=== PATIENT | female | born 1955 | race American Indian/Alaskan Native ===

== ENCOUNTER 2016-06-13 08:09 | Inpatient (IN) | payer MEDICAID, MEDICARE ==
[~2016-06-13 08:09] MED LIST: NACL 0.9% 500 ML 500 ML ONE
[2016-06-13] MEDS ORDERED: NACL 0.9% 1000 ML 1,000 ML IV ONE (08:35)
[2016-06-13 09:03] LABS: Basophils % (Auto) 0.9 % (0.0-1.8); Eosinophils % (Auto) 12.9 % (0.0-4.3); Hematocrit 29.9 % (30.3-42.9); Hemoglobin 9.3 gm/dl (10.1-14.3); Mean Corpuscular HGB Conc 31 % (30-34); Mean Corpuscular Hemoglobin 32 pg (28-32); Mean Corpuscular Volume 103 fl (79-97); Platelet Count 208 K/mm3 (140-440); Red Blood Count 2.91 M/mm3 (3.65-5.03); Red Cell Distribution Width 15.5 % (13.2-15.2); White Blood Count 10.3 K/mm3 (4.5-11.0)
[2016-06-13 09:11] LABS: Albumin 2.8 g/dL (3.9-5); BUN/Creatinine Ratio 4.46; Bilirubin,Total 0.4 mg/dL (0.1-1.2); Calcium 8.9 mg/dL (8.4-10.2); Chloride 94.4 mmol/L (98-107); Potassium 3.3 mmol/L (3.6-5.0); Total Protein 5.5 g/dL (6.3-8.2)
[2016-06-13 09:12] LABS: INR 1.24 (0.87-1.13)
[2016-06-13 09:13] LABS: Partial Thromboplastin Time 29.7 Sec. (24.2-36.6)
--- NOTE | 2016-06-13 11:42 | Emergency Department Report ---
ED General Adult HPI - General Chief complaint: Medical Clearance Stated complaint: BLEEDING /DIALYSIS Time Seen by Provider: 06/13/16 08:21 Source: patient, family, EMS Mode of arrival: Stretcher Limitations: No Limitations - Related Data Home Medications Medication Instructions Recorded Confirmed Last Taken Calcium Carbonate/Vitamin D3 1 each PO DAILY 06/13/16 06/13/16 Unknown [Os-Paul 500+D3 Caplet] Famotidine [Pepcid] 20 mg PO DAILY 06/13/16 06/13/16 Unknown Simvastatin [Zocor TAB] 20 mg PO QHS 06/13/16 06/13/16 Unknown Vit B Cmplx 3/FA/Vit C/Biotin 1 each PO DAILY 06/13/16 06/13/16 Unknown [Shaniqua-Rachael Rx Tablet] Allergies Allergy/AdvReac Type Severity Reaction Status Date / Time No Known Allergies Allergy Verified 06/13/16 08:20 ED Review of Systems ROS: Stated complaint: BLEEDING /DIALYSIS Other details as noted in HPI ED Past Medical Hx - Past Medical History Hx Hypertension: Yes Hx Renal Disease: Yes (Dialysis m-w-f) - Surgical History Additional Surgical History: AV graft right arm - Social History Smoking Status: Former Smoker Substance Use Type: None - Medications Home Medications: Home Medications Medication Instructions Recorded Confirmed Last Taken Type Calcium Carbonate/Vitamin D3 1 each PO DAILY 06/13/16 06/13/16 Unknown History [Os-Paul 500+D3 Caplet] Famotidine [Pepcid] 20 mg PO DAILY 06/13/16 06/13/16 Unknown History Simvastatin [Zocor TAB] 20 mg PO QHS 06/13/16 06/13/16 Unknown History Vit B Cmplx 3/FA/Vit C/Biotin 1 each PO DAILY 06/13/16 06/13/16 Unknown History [Shaniqua-Rachael Rx Tablet] ED Physical Exam - General Limitations: No Limitations ED Course Vital Signs 06/13/16 06/13/16 06/13/16 08:05 08:10 08:16 Temperature 97.4 F L Pulse Rate 119 H 108 H 120 H Respiratory 24 19 Rate Blood Pressure 103/77 103/77 103/77 O2 Sat by Pulse 100 99 Oximetry 06/13/16 06/13/16 06/13/16 08:20 08:30 08:41 Temperature Pulse Rate 106 H 99 H 99 H Respiratory 22 18 22 Rate Blood Pressure 94/58 94/58 O2 Sat by Pulse 100 100 100 Oximetry 06/13/16 06/13/16 06/13/16 08:51 09:00 09:11 Temperature Pulse Rate 97 H 97 H 87 Respiratory 25 H 27 H 22 Rate Blood Pressure 89/60 79/51 79/51 O2 Sat by Pulse 95 99 99 Oximetry 06/13/16 06/13/16 06/13/16 09:21 09:30 09:41 Temperature Pulse Rate 101 H 99 H 93 H Respiratory 26 H 20 24 Rate Blood Pressure 72/49 72/47 72/47 O2 Sat by Pulse 100 99 98 Oximetry 06/13/16 09:51 Temperature Pulse Rate 97 H Respiratory 18 Rate Blood Pressure 81/54 O2 Sat by Pulse 98 Oximetry ED Medical Decision Making - Lab Data Result diagrams: 06/13/16 08:36 06/13/16 08:36 Critical care attestation.: If time is entered above; I have spent that time in minutes in the direct care of this critically ill patient, excluding procedure time. ED Disposition Clinical Impression: Anemia, Bleeding at insertion site Disposition: OP ADMITTED IP TO THIS HOSP Is pt being admited?: Yes Does the pt Need Aspirin: No Condition: Fair Referrals: PRIMARY CARE, [Primary Care Provider] - 3-5 Days Time of Disposition: 11:41
--- NOTE | 2016-06-13 11:47 | Emergency Department Report ---
ED General Adult HPI - General Chief complaint: Medical Clearance Stated complaint: BLEEDING /DIALYSIS Time Seen by Provider: 06/13/16 08:21 Source: patient, family, EMS Mode of arrival: Stretcher Limitations: No Limitations - History of Present Illness -: Sudden Location: right, upper extremity Radiation: non-radiation Severity scale (0 -10): 3 Quality: stabbing Consistency: constant Improves with: cold therapy Worsens with: none Associated Symptoms: denies other symptoms. denies: confusion, chest pain, cough, diaphoresis, fever/chills, headaches, loss of appetite, malaise, nausea/ vomiting Treatments Prior to Arrival: none - Related Data Home Medications Medication Instructions Recorded Confirmed Last Taken Calcium Carbonate/Vitamin D3 1 each PO DAILY 06/13/16 06/13/16 Unknown [Os-Paul 500-Vit D3 600 Caplet] Famotidine [Pepcid] 20 mg PO DAILY 06/13/16 06/13/16 Unknown Simvastatin [Zocor TAB] 20 mg PO QHS 06/13/16 06/13/16 Unknown Vit B Cmplx 3/FA/Vit C/Biotin 1 each PO DAILY 06/13/16 06/13/16 Unknown [Shaniqua-Rachael Rx Tablet] Allergies Allergy/AdvReac Type Severity Reaction Status Date / Time No Known Allergies Allergy Verified 06/13/16 08:20 ED Review of Systems ROS: Stated complaint: BLEEDING /DIALYSIS Other details as noted in HPI Constitutional: denies: chills, fever Eyes: denies: eye pain, eye discharge, vision change ENT: denies: ear pain, throat pain Respiratory: denies: cough, shortness of breath, wheezing Cardiovascular: denies: chest pain, palpitations Endocrine: no symptoms reported Gastrointestinal: denies: abdominal pain, nausea, diarrhea Genitourinary: denies: urgency, dysuria, discharge Musculoskeletal: denies: back pain, joint swelling, arthralgia Skin: denies: rash, lesions Neurological: denies: headache, weakness, paresthesias Psychiatric: denies: anxiety, depression Hematological/Lymphatic: denies: easy bleeding, easy bruising ED Past Medical Hx - Past Medical History Hx Hypertension: Yes Hx Renal Disease: Yes (Dialysis m-w-f) - Surgical History Additional Surgical History: AV graft right arm - Social History Smoking Status: Former Smoker Substance Use Type: None - Medications Home Medications: Home Medications Medication Instructions Recorded Confirmed Last Taken Type Calcium Carbonate/Vitamin D3 1 each PO DAILY 06/13/16 06/13/16 Unknown History [Os-Paul 500-Vit D3 600 Caplet] Famotidine [Pepcid] 20 mg PO DAILY 06/13/16 06/13/16 Unknown History Simvastatin [Zocor TAB] 20 mg PO QHS 06/13/16 06/13/16 Unknown History Vit B Cmplx 3/FA/Vit C/Biotin 1 each PO DAILY 06/13/16 06/13/16 Unknown History [Shaniqua-Rachael Rx Tablet] ED Physical Exam - General Limitations: No Limitations General appearance: alert, in no apparent distress - Head Head exam: Present: atraumatic, normocephalic - Neck Neck exam: Present: normal inspection - Respiratory Respiratory exam: Present: normal lung sounds bilaterally. Absent: respiratory distress - Cardiovascular Cardiovascular Exam: Present: regular rate, normal rhythm. Absent: systolic murmur, diastolic murmur, rubs, gallop - GI/Abdominal GI/Abdominal exam: Present: soft, normal bowel sounds - Extremities Exam Extremities exam: Present: full ROM, normal capillary refill, other (no bleeding at AV shunt, positive thrill. ) - Back Exam Back exam: Present: normal inspection - Psychiatric Psychiatric exam: Present: normal affect, normal mood - Skin Skin exam: Present: warm, dry, intact, normal color. Absent: rash ED Course Vital Signs 06/13/16 06/13/16 06/13/16 08:05 08:10 08:16 Temperature 97.4 F L Pulse Rate 119 H 108 H 120 H Respiratory 24 19 Rate Blood Pressure 103/77 103/77 103/77 Blood Pressure [Left] O2 Sat by Pulse 100 99 Oximetry 06/13/16 06/13/16 06/13/16 08:20 08:30 08:41 Temperature Pulse Rate 106 H 99 H 99 H Respiratory 22 18 22 Rate Blood Pressure 94/58 94/58 Blood Pressure [Left] O2 Sat by Pulse 100 100 100 Oximetry 06/13/16 06/13/16 06/13/16 08:51 09:00 09:11 Temperature Pulse Rate 97 H 97 H 87 Respiratory 25 H 27 H 22 Rate Blood Pressure 89/60 79/51 79/51 Blood Pressure [Left] O2 Sat by Pulse 95 99 99 Oximetry 06/13/16 06/13/16 06/13/16 09:21 09:30 09:41 Temperature Pulse Rate 101 H 99 H 93 H Respiratory 26 H 20 24 Rate Blood Pressure 72/49 72/47 72/47 Blood Pressure [Left] O2 Sat by Pulse 100 99 98 Oximetry 06/13/16 06/13/16 06/13/16 09:51 10:00 10:11 Temperature Pulse Rate 97 H 100 H 92 H Respiratory 18 19 21 Rate Blood Pressure 81/54 80/56 80/56 Blood Pressure [Left] O2 Sat by Pulse 98 100 99 Oximetry 06/13/16 06/13/16 06/13/16 10:21 10:30 10:41 Temperature Pulse Rate 99 H 100 H 93 H Respiratory 17 18 22 Rate Blood Pressure 80/54 76/54 76/54 Blood Pressure [Left] O2 Sat by Pulse 99 100 98 Oximetry 06/13/16 06/13/16 06/13/16 10:51 11:00 11:11 Temperature Pulse Rate 96 H 96 H 99 H Respiratory 19 15 24 Rate Blood Pressure 79/51 76/48 76/48 Blood Pressure [Left] O2 Sat by Pulse 100 100 100 Oximetry 06/13/16 06/13/16 06/13/16 11:21 11:30 11:41 Temperature Pulse Rate 90 96 H 92 H Respiratory 19 20 17 Rate Blood Pressure 85/52 73/49 73/49 Blood Pressure [Left] O2 Sat by Pulse 100 100 100 Oximetry 06/13/16 06/13/16 06/13/16 11:51 12:00 12:11 Temperature Pulse Rate 94 H 99 H 92 H Respiratory 14 14 16 Rate Blood Pressure 73/49 72/49 72/49 Blood Pressure [Left] O2 Sat by Pulse 100 100 100 Oximetry 06/13/16 06/13/16 06/13/16 12:21 12:30 12:41 Temperature Pulse Rate 100 H 97 H 100 H Respiratory 22 20 16 Rate Blood Pressure 78/47 74/51 74/51 Blood Pressure [Left] O2 Sat by Pulse 100 100 100 Oximetry 06/13/16 06/13/16 06/13/16 12:51 13:00 13:11 Temperature Pulse Rate 97 H 98 H 95 H Respiratory 20 17 15 Rate Blood Pressure 79/53 77/55 79/53 Blood Pressure [Left] O2 Sat by Pulse 100 100 100 Oximetry 06/13/16 13:25 Temperature Pulse Rate 98 H Respiratory 20 Rate Blood Pressure Blood Pressure 82/56 [Left] O2 Sat by Pulse 100 Oximetry ED Medical Decision Making - Lab Data Result diagrams: 06/18/16 05:36 06/18/16 05:36 - EKG Data EKG shows normal: sinus rhythm Rate: normal - EKG Data When compared to previous EKG there are: previous EKG unavailable - Medical Decision Making Will admit for moderate amount of bleeding from AV shunt, control at this time but still mildly hypotensive despite IVF, she also will need dialysis during the admission and concerned this shunt has been bleeding for the last 2 months. Critical care attestation.: If time is entered above; I have spent that time in minutes in the direct care of this critically ill patient, excluding procedure time. ED Disposition Clinical Impression: Bleeding at insertion site, Hemodialysis graft malfunction, End-stage renal disease on hemodialysis Disposition: OP ADMITTED IP TO THIS HOSP Is pt being admited?: Yes Does the pt Need Aspirin: No Condition: Good Time of Disposition: 11:50
--- NOTE | 2016-06-13 12:04 | Admit Criteria Form ---
Admission Criteria Documentation: ANEMIA, IRON DEFICIENCY OR UNSPECIFIED Clinical Indications for Inpatient Care (Place 'X' for any and all applicable criteria): Admission is indicated for ANY ONE of the following(1)(2)(3)(4)(5)(6)(7): [X] I. Inpatient admission required rather than observation care (Also use Anemia, Iron Deficiency or Unspecified: Observation Care guideline as appropriate) because of ANY ONE of the following: [X] a) Hemodynamic instability that is severe or persistent [] b) Active bleeding that cannot be rapidly controlled [] c) CVS symptoms (i.e., dyspnea, chest pain, heart failure) that are severe or persistent [] d) Neurologic symptoms (i.e., cognitive impairment, recurrent syncope or near syncope) that are severe or persistent [] e) Cardiac arrhythmias of immediate concern [] f) Acute peripheral ischemia (e.g., pulseless, cool, mottled, or cyanotic extremity) [] g) High-risk low platelet count [] h) Acute renal failure [] i) Ongoing transfusion for blood loss (greater than 2 units) [] j) IV fluid to replace significant ongoing (eg, >24 hours) losses (> 3 L/m2 per day) [] k) Pulmonary artery catheter monitoring [] l) Supplemental oxygen or respiratory treatments for over 24 hours that are performable only in acute inpatient setting [] m) Immediate inpatient surgery [] n) Other condition, treatment or monitoring requiring inpatient admission [] II Active massive hemorrhage [] III. Active hemolysis with rapidly progressive anemia [A](6) Extended stay beyond goal length of stay may be needed for (17)(18) []a) Diagnosed cause of anemia requiring longer hospitalization (eg, active GI bleeding, immune hemolysis requiring electrophoresis, complications of malignancy requiring acute care []b) Continued emergent anemia indicators (23) []c) Transfusion reactions []d) Associated leukopenia or thrombocytopenia needing inpatient care []e) Active comorbidities (eg, renal failure, heart failure) The original [facility] Care Guidelines content created by [facility] Care Guidelines has been revised. The portions of the content which have been revised are identified through the use of italic text or in bold. [facility] Guidelines has neither reviewed nor approved the modified material. All other unmodified content is copyright [facility] Care Guidelines. Please see references footnoted in the original [facility] edition 2016 Admission Criteria Met: Yes
[2016-06-13 12:17] LABS: Hematocrit 29.8 % (30.3-42.9); Hemoglobin 9.3 gm/dl (10.1-14.3); Mean Corpuscular HGB Conc 31 % (30-34); Mean Corpuscular Hemoglobin 31 pg (28-32); Mean Corpuscular Volume 101 fl (79-97); Platelet Count 221 K/mm3 (140-440); Red Blood Count 2.95 M/mm3 (3.65-5.03); Red Cell Distribution Width 15.4 % (13.2-15.2)
[2016-06-13 12:22] LABS: White Blood Count 20.2 K/mm3 (4.5-11.0)
[2016-06-13 13:05] LABS: Basophils % (Manual) 0 % (0.0-1.8); Blastocytes % (Manual) 0 %
[2016-06-13 13:06] LABS: Anisocytosis 1+
[2016-06-13 13:07] LABS: Diff Status Complete; Elliptocytes Few
[2016-06-13] MEDS ORDERED: NACL 0.9% 500 ML 500 ML IV ONE (14:07)
--- NOTE | 2016-06-13 19:09 | Consultation ---
History of Present Illness - Reason for Consult Consult date: 06/13/16 Requesting physician: DEEPTI RUIZ - History of Present Illness This patient is a 61-year-old female that presented to the emergency room at due to bleeding from her right upper arm AV graft. She last received hemodialysis on Saturday. She had prolonged bleeding after dialysis but it was able to be controlled. She developed bleeding from her AV access earlier today, and was sent to the emergency room where she has since been admitted. A vascular surgery consult has been requested to further evaluate. Her AV graft was [place] She had a fistulogram and angioplasty approximately 3 months ago, and was scheduled to have an intervention last week. This apparently did not get scheduled through her clinic, therefore she has not been evaluated. She denies any fevers or chills. Past History Past Medical History: dialysis, ESRD, hypertension, hyperlipidemia Past Surgical History: total hip replacement (bilateral), Other (1 previous permacath placement, creation of a right upper showed AV graft years ago, subsequent fistulogram and angioplasty of her AV access) Social history: other (she lives with her son). denies: smoking (she has a remote history of tobacco use but quit when she was 29) Family history: denies: no significant family history (none listed) Medications and Allergies Allergies Allergy/AdvReac Type Severity Reaction Status Date / Time No Known Allergies Allergy Verified 06/13/16 08:20 Home Medications Medication Instructions Recorded Confirmed Last Taken Type Calcium Carbonate/Vitamin D3 1 each PO DAILY 06/13/16 06/13/16 Unknown History [Os-Paul 500+D3 Caplet] Famotidine [Pepcid] 20 mg PO DAILY 06/13/16 06/13/16 Unknown History Simvastatin [Zocor TAB] 20 mg PO QHS 06/13/16 06/13/16 Unknown History Vit B Cmplx 3/FA/Vit C/Biotin 1 each PO DAILY 06/13/16 06/13/16 Unknown History [Shaniqua-Rachael Rx Tablet] Review of Systems All systems: negative Exam - Constitutional Vitals: Temp Pulse Resp BP Pulse Ox 97.5 F L 94 H 22 99/66 100 06/13/16 17:05 06/13/16 17:05 06/13/16 17:05 06/13/16 17:05 06/13/16 17:05 General appearance: Present: no acute distress - EENT Eyes: Present: EOM intact ENT: hearing intact - Neck Neck: Present: supple - Respiratory Respiratory effort: normal - Extremities Extremities: no ischemia, normal temperature, abnormal (she has a right upper arm AV access, it's quite large, it appears to be an AV graft although it is difficult to see the incisional pattern. She has a small 1-2 millimeter ulceration. There is no active bleeding or surrounding erythema. She has a palpable pulse/thrill.) - Psychiatric Psychiatric: appropriate mood/affect, intact judgment & insight, cooperative Results - Labs CBC & Chem 7: 06/13/16 11:53 06/13/16 08:36 Labs: Abnormal lab results 06/13/16 06/13/16 06/13/16 Range/Units 11:53 13:32 17:15 WBC 20.2 H (4.5-11.0) K/mm3 RBC 2.95 L (3.65-5.03) M/mm3 Hgb 9.3 L (10.1-14.3) gm/dl Hct 29.8 L (30.3-42.9) % MCV 101 H (79-97) fl RDW 15.4 H (13.2-15.2) % Seg Neuts % (Manual) 88.0 H (40.0-70.0) % Lymphocytes % (Manual) 4.0 L (13.4-35.0) % Seg Neutrophils # Man 17.8 H (1.8-7.7) K/mm3 Lymphocytes # (Manual) 0.8 L (1.2-5.4) K/mm3 Monocytes # (Manual) 1.4 H (0.0-0.8) K/mm3 POC Glucose 112 H (70-105) Crossmatch See Detail Assessment and Plan This patient has end-stage renal disease, and presented to the emergency room due to bleeding from her right upper shoulder AV graft. Pressure was applied and hemostasis was achieved. She has been admitted in the vascular surgery consult has been requested to further evaluate. Patient was seen. Suspect she has underlying outflow stenosis, and would benefit from fistulogram and angioplasty. We'll make patient nothing by mouth after midnight in preparation for this procedure. The risks benefits and alternatives to this procedure were discussed in great detail. She states understanding and agrees to proceed. This will be performed in the cardiac catheterization suite. - Patient Problems (1) Hemodialysis graft malfunction Current Visit: Yes Status: Acute Qualifiers: Encounter type: E (2) Leukocytosis Current Visit: Yes Status: Acute Qualifiers: Leukocytosis type: L (3) End-stage renal disease on hemodialysis Current Visit: Yes Status: Acute (4) Hypertension Current Visit: Yes Status: Acute Qualifiers: Hypertension type: H (5) Hyperlipidemia Current Visit: Yes Status: Acute Qualifiers: Hyperlipidemia type: H
[2016-06-13] MEDS ORDERED: K-DUR PO ONE (22:19)
--- NOTE | 2016-06-13 23:23 | History and Physical Report ---
CHIEF COMPLAINT: Excessive bleeding from the right AV graft. HISTORY OF PRESENT ILLNESS: A 61-year-old female who presents to the Emergency Room because of losing lot of blood from the AV graft site. She had prolonged bleeding after dialysis and it was uncontrollable. Apparently, she lost 750 mL. She had bleeding on Saturday also but it was controlled. Today during the dialysis, patient continued to have bleeding and was not able to be controlled. Hence, the patient was sent to the Emergency Room. Apparently, the patient lost about 750 mL of blood. This could not be verified. Her AV graft was placed several years ago and had a fistulogram and angioplasty nearly 3 months ago. PAST MEDICAL HISTORY: Significant for hyperlipidemia, hypertension and end-stage renal disease. PAST SURGICAL HISTORY: Significant for a total hip replacement bilaterally, one previous PermCath placement. The patient has a right upper AV graft years ago. Subsequent fistulogram and angioplasty of her AV access. SOCIAL HISTORY: Lives with her son and denies smoking. Has a remote history of tobacco use about when she was 29 years old and quit a few years later. FAMILY HISTORY: No significant family history. ALLERGIES: None. CURRENT MEDICATIONS: Famotidine 20 mg p.o. daily, simvastatin 20 mg p.o. at bedtime. REVIEW OF SYSTEMS: The patient was feeling weak; otherwise review of systems is essentially negative. A 14-point review of systems was done. PHYSICAL EXAMINATION: GENERAL: Middle-aged female lying in bed comfortably. VITAL SIGNS: Blood pressure is 99/66, respirations are 22, pulse is 94, temperature 97.5. HEENT: Unremarkable. Pupils equal and reactive. NECK: Supple, no lymphadenopathy, no thyromegaly. LUNGS: Clear to auscultation and percussion. Good air entry. CARDIOVASCULAR: S1, S2 heard. No gallop, no murmur, no rub. Apical impulse in left fifth intercostal space and midclavicular line. ABDOMEN: Soft and benign. No hepatosplenomegaly. No guarding, no rigidity. Hernial orifices are normal. EXTREMITIES: Right upper extremity, the site of AV graft is bandaged. There is no blood on the bandage. The bleeding is controlled. She has 1-2 mm ulceration on the AV graft region. No active bleeding or surrounding erythema. Has a palpable pulse and thrill. CENTRAL NERVOUS SYSTEM: Alert and oriented x 4, nonfocal exam. PSYCHIATRIC: Appropriate mood and affect, intact judgment and insight. LABORATORY DATA: White count is 20,200, H is 9.3 and 29.8. Platelet count is 221,000. Sodium is 140, potassium is 3.3, chloride is 94.4, bicarbonate is 18, BUN and creatinine 46 and 10.3, glucose is 251. ASSESSMENT AND PLAN: 1. AV graft malfunction with bleeding. Bleeding was controlled with pressure dressing. Vascular surgery consulted. Vascular surgery suspects underlying outflow stenosis and wants to do fistulogram and angioplasty. The patient will be kept n.p.o. from midnight. 2. Leukocytosis, etiology uncertain. We will give antibiotics empirically. We will give Rocephin 1 gram IV piggyback q.24h 3. End-stage renal disease, on hemodialysis. Nephrology consulted for further dialysis. 4. Hypertension, well controlled. Continue antihypertensives. 5. Hyperlipidemia. Continue gemfibrozil. 6. Deep venous thrombosis prophylaxis, sequential compression devices only. Because of the bleeding, no heparin or Lovenox initiated. DISCHARGE PLANNING ISSUES: The patient will be discharged once the AV graft is repaired and workup for AV graft is done. Also, check the white count. JOB# [id number] TILA/CONNER CRAIG
[2016-06-14] MEDS ORDERED: ANCEF/STERILE WATER 2 GM/20 ML IV NR (08:00)
--- NOTE | 2016-06-14 09:03 | Consultation ---
History of Present Illness - Reason for Consult Consult date: 06/14/16 end stage renal disease - History of Present Illness Mrs. Manzanares is a 61yo with ESRD on HD MWF via TU AVG admitted with bleeding from AVG. Accroding to son, scabbing of AVG was noted appx 6 weeks ago. She presented to the ED on Wed due to brisk bleeding from AVG. Past History Past Medical History: dialysis, ESRD, hypertension, hyperlipidemia Past Surgical History: total hip replacement (bilateral), Other (1 previous permacath placement, creation of a right upper showed AV graft years ago, subsequent fistulogram and angioplasty of her AV access) Social history: other (she lives with her son). denies: smoking (she has a remote history of tobacco use but quit when she was 29) Family history: denies: no significant family history (none listed) Medications and Allergies Allergies Allergy/AdvReac Type Severity Reaction Status Date / Time No Known Allergies Allergy Verified 06/13/16 08:20 Home Medications Medication Instructions Recorded Confirmed Last Taken Type Calcium Carbonate/Vitamin D3 1 each PO DAILY 06/13/16 06/13/16 Unknown History [Os-Paul 500+D3 Caplet] Famotidine [Pepcid] 20 mg PO DAILY 06/13/16 06/13/16 Unknown History Simvastatin [Zocor TAB] 20 mg PO QHS 06/13/16 06/13/16 Unknown History Vit B Cmplx 3/FA/Vit C/Biotin 1 each PO DAILY 06/13/16 06/13/16 Unknown History [Shaniqua-Rachael Rx Tablet] Active Meds: Active Medications Cefazolin Sodium (Ancef/Sterile Water 2 Gm/20 Ml) 2 gm IV PREOP NR Stop: 06/14/16 23:00 Famotidine (Pepcid) 20 mg PO DAILY [place] Ceftriaxone Sodium (Rocephin/Ns 1 Gm/50 Ml) 1 gm in 50 mls @ 100 mls/hr IV Q24HR [place] Simvastatin (Zocor) 20 mg PO QHS [place] Exam - Vital Signs Vital signs: Vital Signs Pulse Resp BP 119 H 24 103/77 06/13/16 08:05 06/13/16 08:05 06/13/16 08:05 Results - Lab Results 06/15/16 05:38 06/15/16 05:38 Most recent lab results Calcium 8.9 mg/dL (8.4-10.2) 06/13/16 08:36 Assessment and Plan Impression: * End stage renal disease on HD * Malfunctioning AVG * Anemia secondary to acute blood loss vs ESRD * Leukocytosis - reactive vs infectious Plan: * Vascular surgery following - access evaluation today * Hemodialysis to follow - will likely need catheter * Blood cx pending * Renal diet * Epogen with dialysis
[2016-06-14] MEDS: ROCEPHIN/NS 1 GM/50 ML 1 GM/50 ML BAG IV SCH (11:54)
[2016-06-14] MEDS: PEPCID PO SCH (11:55)
[2016-06-14] MEDS ORDERED: NACL 0.9% 250ML 250 ML ONE (12:41)
[2016-06-14] MEDS ORDERED: HEPARIN/NS 5000 UNIT/500ML(CATH LAB) 500 ML IR ONE ×2 (12:41→13:13)
[2016-06-14] MEDS: SUBLIMAZE ONE ×3 (12:56→13:30)
[2016-06-14] MEDS: VERSED ONE ×3 (12:56→13:30)
[2016-06-14] MEDS: XYLOCAINE 2% INFILTRATI ONE ×2 (12:56→13:20)
[2016-06-14] MEDS ORDERED: HEPARIN 10,000 UNITS/10 ML ONE ×2 (13:30→17:08)
--- NOTE | 2016-06-14 13:51 | Event Note ---
Date: 06/14/16 Upon start of fistulogram/fistuloplasty procedure, the access was evaluated under ultrasound and was clotted throughout its extent. In addition, the nitish- graft (graft per patient report) has been in place for 6 years and the patient has a WBC of 20. Since this was not a simple fistuloplasty, but would be a declot, given the WBC of 20 I elected to abort the fistula portion of the procedure and place a vascath at this time. Will re-evaluate options based on patient's lab results.
--- NOTE | 2016-06-14 13:58 | Operative Report ---
Operative Report Operative Report: EXAM: 1. Ultrasound evaluation of the left arm AV graft 2. Ultrasound-guided access of the right internal jugular vein 3. SVC angiography 4. Selection of the left brachiocephalic vein with angiography 5. Placement of a 15 cm non-tunneled non-cuff dual-lumen dialysis catheter in the right internal jugular vein DATE: 06/14/16 YOUTH PROGRAM DIRECTOR: NAT RUSSO MD INDICATION: End-stage renal disease with malfunctioning right arm AV graft MEDICATIONS: Please see nursing report for full details. CONTRAST: 20 mL of nonionic contrast PROCEDURE: The risks, benefits, and alternatives were discussed with the patient; written informed consent was obtained. Ultrasound is used to evaluate the left arm AV graft. The AV graft was severely degenerated and was incredibly aneurysmal. The patient reports this was a prosthetic, but the incision lines are healed and cannot be well visualized in order to confirm this. Evaluation of the left arm AV graft demonstrates a large thrombus throughout its course. Given that the patient has a leukocytosis of 20, I decided to not perform a thrombectomy at this time. Ultrasound is used to evaluate the right internal jugular vein which was patent. Under direct ultrasound guidance, the right internal jugular vein was accessed with a 21-gauge micropuncture needle. 0.01-gauge wire was passed into the IVC. Needle was exchanged for transitional dilator. 0.035 inch wire was passed and the IVC. Transitional dilator was exchanged for a short 7 Chinese sheath. Angiography was performed demonstrating patency of the SVC and prompt flow into the right atrium. Catheter was then used to select the left innominate vein and digital subtraction performed demonstrating patency of the left innominate vein peripherally, but relative narrowing centrally which just may be due to the patulous nature of the peripheral portion of the left innominate vein. Wire was then passed into the IVC. Sheath was removed in exchange for 15 cm non -tunneled non-cuffed hemodialysis catheter which was appropriately positioned under fluoroscopic guidance into the right atrium. Wire was removed. A hemodialysis catheter was then heparinized with 1000 units of heparin per mL of space. Hemodialysis catheter was then secured with silk suture. Sterile dressing applied. Patient tolerated the procedure well. No immediate postprocedural complication. FINDINGS: See procedure note above IMPRESSION: Successful venography and placement of a non-tunneled non-cuffed hemodialysis catheter.
[2016-06-14] MEDS ORDERED: NACL 0.9% 100 ML IV PRN ×2 (14:55→16:31)
--- NOTE | 2016-06-14 15:54 | Progress Note ---
Assessment and Plan Assessment and plan: End-stage renal disease on hemodialysis - Nephrology consult appreciated Clotted AV fistula - Vascular surgery consult appreciated - Preferred to put vasc cath and postponed his surgery Leukocytosis - I ordered blood culture Prophylaxis - On heparin History Interval history: Patient was seen and evaluated this morning, she denied any active bleeding from the site of fistula. Patient denied any chest pain. Hospitalist Physical - Physical exam Narrative exam: Not in cardiopulmonary distress. The patient appeared well nourished and normally developed. Vital signs as documented. Head exam is unremarkable. No scleral icterus . Neck is without jugular venous distension, thyromegaly, or carotid bruits. Lungs are clear to auscultation. Cardiac exam reveals regular rate and Rhythm. First and second heart sounds normal. No murmurs, rubs or gallops. Abdominal exam reveals normal bowel sounds, no masses, no organomegaly and no aortic enlargement. Extremities are nonedematous and both femoral and pedal pulses are normal. 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 No focal weakness. - Constitutional Vitals: Temp Pulse Resp BP Pulse Ox 98.2 F 86 20 101/65 99 06/14/16 09:05 06/14/16 09:05 06/14/16 09:05 06/14/16 09:05 06/14/16 09:05 General appearance: Present: no acute distress Results - Labs CBC & Chem 7: 06/13/16 11:53 06/13/16 08:36 Labs: Laboratory Last Values WBC 20.2 K/mm3 (4.5-11.0) H 06/13/16 11:53 RBC 2.95 M/mm3 (3.65-5.03) L 06/13/16 11:53 Hgb 9.3 gm/dl (10.1-14.3) L 06/13/16 11:53 Hct 29.8 % (30.3-42.9) L 06/13/16 11:53 MCV 101 fl (79-97) H 06/13/16 11:53 MCH 31 pg (28-32) 06/13/16 11:53 MCHC 31 % (30-34) 06/13/16 11:53 RDW 15.4 % (13.2-15.2) H 06/13/16 11:53 Plt Count 221 K/mm3 (140-440) 06/13/16 11:53 Lymph % (Auto) 25.2 % (13.4-35.0) 06/13/16 08:36 [place] % (Auto) 10.4 % (0.0-7.3) H 06/13/16 08:36 Eos % (Auto) 12.9 % (0.0-4.3) H 06/13/16 08:36 Baso % (Auto) 0.9 % (0.0-1.8) 06/13/16 08:36 Lymph # 2.6 K/mm3 (1.2-5.4) 06/13/16 08:36 [place] # 1.1 K/mm3 (0.0-0.8) H 06/13/16 08:36 Eos # 1.3 K/mm3 (0.0-0.4) H 06/13/16 08:36 Baso # 0.1 K/mm3 (0.0-0.1) 06/13/16 08:36 Add Manual Diff Complete 06/13/16 11:53 Total Counted 100 06/13/16 11:53 Seg Neutrophils % 50.6 % (40.0-70.0) 06/13/16 08:36 Seg Neuts % (Manual) 88.0 % (40.0-70.0) H 06/13/16 11:53 Band Neutrophils % 0 % 06/13/16 11:53 Lymphocytes % (Manual) 4.0 % (13.4-35.0) L 06/13/16 11:53 Reactive Lymphs % (Man) 0 % 06/13/16 11:53 Monocytes % (Manual) 7.0 % (0.0-7.3) 06/13/16 11:53 Eosinophils % (Manual) 1.0 % (0.0-4.3) 06/13/16 11:53 Basophils % (Manual) 0 % (0.0-1.8) 06/13/16 11:53 Metamyelocytes % 0 % 06/13/16 11:53 Myelocytes % 0 % 06/13/16 11:53 Promyelocytes % 0 % 06/13/16 11:53 Blast Cells % 0 % 06/13/16 11:53 Nucleated RBC % Not Reportable 06/13/16 11:53 Seg Neutrophils # 5.2 K/mm3 (1.8-7.7) 06/13/16 08:36 Seg Neutrophils # Man 17.8 K/mm3 (1.8-7.7) H 06/13/16 11:53 Band Neutrophils # 0.0 K/mm3 06/13/16 11:53 Lymphocytes # (Manual) 0.8 K/mm3 (1.2-5.4) L 06/13/16 11:53 Abs React Lymphs (Man) 0.0 K/mm3 06/13/16 11:53 Monocytes # (Manual) 1.4 K/mm3 (0.0-0.8) H 06/13/16 11:53 Eosinophils # (Manual) 0.2 K/mm3 (0.0-0.4) 06/13/16 11:53 Basophils # (Manual) 0.0 K/mm3 (0.0-0.1) 06/13/16 11:53 Metamyelocytes # 0.0 K/mm3 06/13/16 11:53 Myelocytes # 0.0 K/mm3 06/13/16 11:53 Promyelocytes # 0.0 K/mm3 06/13/16 11:53 Blast Cells # 0.0 K/mm3 06/13/16 11:53 WBC Morphology Not Reportable 06/13/16 11:53 Hypersegmented Neuts Not Reportable 06/13/16 11:53 Hyposegmented Neuts Not Reportable 06/13/16 11:53 Hypogranular Neuts Not Reportable 06/13/16 11:53 Smudge Cells Not Reportable 06/13/16 11:53 Toxic Granulation Not Reportable 06/13/16 11:53 Toxic Vacuolation Not Reportable 06/13/16 11:53 Dohle Bodies Not Reportable 06/13/16 11:53 Pelger-Huet Anomaly Not Reportable 06/13/16 11:53 Yessy Rods Not Reportable 06/13/16 11:53 Platelet Estimate Appears normal 06/13/16 11:53 Clumped Platelets Not Reportable 06/13/16 11:53 Plt Clumps, EDTA Not Reportable 06/13/16 11:53 Large Platelets Not Reportable 06/13/16 11:53 Giant Platelets Not Reportable 06/13/16 11:53 Platelet Satelliting Not Reportable 06/13/16 11:53 Plt Morphology Comment Not Reportable 06/13/16 11:53 RBC Morphology Not Reportable 06/13/16 11:53 Dimorphic RBCs Not Reportable 06/13/16 11:53 Polychromasia Not Reportable 06/13/16 11:53 Hypochromasia Not Reportable 06/13/16 11:53 Poikilocytosis Not Reportable 06/13/16 11:53 Anisocytosis 1+ 06/13/16 11:53 Microcytosis Not Reportable 06/13/16 11:53 Macrocytosis Not Reportable 06/13/16 11:53 Spherocytes Not Reportable 06/13/16 11:53 Pappenheimer Bodies Not Reportable 06/13/16 11:53 Sickle Cells Not Reportable 06/13/16 11:53 Target Cells Not Reportable 06/13/16 11:53 Tear Drop Cells Not Reportable 06/13/16 11:53 Ovalocytes Not Reportable 06/13/16 11:53 Helmet Cells Not Reportable 06/13/16 11:53 Yi-[place] Bodies Not Reportable 06/13/16 11:53 [place] Rings Not Reportable 06/13/16 11:53 Yair Cells Not Reportable 06/13/16 11:53 Bite Cells Not Reportable 06/13/16 11:53 Crenated Cell Not Reportable 06/13/16 11:53 Elliptocytes Few 06/13/16 11:53 Acanthocytes (Spur) Not Reportable 06/13/16 11:53 Rouleaux Not Reportable 06/13/16 11:53 Hemoglobin C Crystals Not Reportable 06/13/16 11:53 Schistocytes Not Reportable 06/13/16 11:53 Malaria parasites Not Reportable 06/13/16 11:53 Temo Bodies Not Reportable 06/13/16 11:53 Hem Pathologist Commnt No 06/13/16 11:53 PT 15.5 Sec. (12.2-14.9) H 06/13/16 08:36 INR 1.24 (0.87-1.13) H 06/13/16 08:36 APTT 29.7 Sec. (24.2-36.6) 06/13/16 08:36 Sodium 140 mmol/L (137-145) 06/13/16 08:36 Potassium 3.3 mmol/L (3.6-5.0) L 06/13/16 08:36 Chloride 94.4 mmol/L (98-107) L 06/13/16 08:36 Carbon Dioxide 18 mmol/L (22-30) L 06/13/16 08:36 Anion Gap 31 mmol/L 06/13/16 08:36 BUN 46 mg/dL (7-17) H 06/13/16 08:36 Creatinine 10.3 mg/dL (0.7-1.2) H 06/13/16 08:36 Estimated GFR 5 ml/min 06/13/16 08:36 BUN/Creatinine Ratio 4.46 % 06/13/16 08:36 Glucose 251 mg/dL (65-100) H 06/13/16 08:36 POC Glucose 109 (70-105) H 06/13/16 22:08 Calcium 8.9 mg/dL (8.4-10.2) 06/13/16 08:36 Total Bilirubin 0.4 mg/dL (0.1-1.2) 06/13/16 08:36 AST 12 units/L (5-40) 06/13/16 08:36 ALT 8 units/L (7-56) 06/13/16 08:36 Alkaline Phosphatase 60 units/L (35-129) 06/13/16 08:36 Total Protein 5.5 g/dL (6.3-8.2) L 06/13/16 08:36 Albumin 2.8 g/dL (3.9-5) L 06/13/16 08:36 Albumin/Globulin Ratio 1.0 % 06/13/16 08:36 Blood Type A POSITIVE 06/13/16 13:32 Antibody Screen Negative 06/13/16 13:32 Crossmatch See Detail 06/13/16 13:32 Leukocytosis
[2016-06-14] MEDS ORDERED: NACL 0.9 (PRIMING MACHINE ONLY DIALYSIS) MC ONE (16:23)
[2016-06-14] MEDS: HEPARIN IV PRN (18:44)
[2016-06-14 22:00] LABS: Basophils % (Auto) 0.5 % (0.0-1.8); Eosinophils % (Auto) 5.9 % (0.0-4.3); Hematocrit 22.4 % (30.3-42.9); Hemoglobin 7.1 gm/dl (10.1-14.3); Mean Corpuscular HGB Conc 32 % (30-34); Mean Corpuscular Hemoglobin 31 pg (28-32); Mean Corpuscular Volume 97 fl (79-97); Platelet Count 124 K/mm3 (140-440); Red Cell Distribution Width 15.2 % (13.2-15.2)
[2016-06-14] MEDS: ZOCOR PO SCH (22:21)
[2016-06-15 06:27] LABS: Basophils % (Auto) 0.7 % (0.0-1.8); Eosinophils % (Auto) 10.8 % (0.0-4.3); Hemoglobin 6.3 gm/dl (10.1-14.3); Mean Corpuscular HGB Conc 32 % (30-34); Mean Corpuscular Hemoglobin 31 pg (28-32); Mean Corpuscular Volume 98 fl (79-97); Platelet Count 121 K/mm3 (140-440); Red Blood Count 2.04 M/mm3 (3.65-5.03); Red Cell Distribution Width 15.3 % (13.2-15.2); White Blood Count 11.3 K/mm3 (4.5-11.0)
[2016-06-15 06:40] LABS: Calcium 7.1 mg/dL (8.4-10.2); Chloride 98.2 mmol/L (98-107)
[2016-06-15 06:46] LABS: Potassium 4.1 mmol/L (3.6-5.0)
[2016-06-15 07:09] LABS: BUN/Creatinine Ratio 4.39
--- NOTE | 2016-06-15 07:47 | Vascular Lab Report ---
MISCELLANEOUS VESSEL IDENTIFICATION: COMMENTS ON THE SCAN: The right internal jugular vein was identified and under real-time ultrasound guidance was cannulated. IMPRESSION: Successful ultrasound guided vein cannulation.
[2016-06-15] MEDS: ROCEPHIN/NS 1 GM/50 ML 1 GM/50 ML BAG IV SCH (12:25)
[2016-06-15] MEDS: PEPCID PO SCH (12:27)
[2016-06-15] MEDS ORDERED: NACL 0.9% 500 ML 500 ML IV SCH (12:32)
--- NOTE | 2016-06-15 12:32 | Progress Note ---
Assessment and Plan Impression: * End stage renal disease on HD (outpatient MWF schedule) * Malfunctioning AVG * Anemia secondary to acute blood loss vs ESRD * Leukocytosis - reactive vs infectious; trending down * Secondary hyperparathyroidism Plan: * Hemodiaylsis tomorrow via vascath * Vascular findings reviewed * Blood cx pending * Abx per primary team * Will transfuse pRBC x 2 units today - no hx of HTN but patient's BP is on low end * Renal diet; patient does not take binders * Epogen with dialysis Subjective Date of service: 06/15/16 Interval history: Patient has no complaints today. Denies n/v/SOB. Appetite is good. Objective - Vital Signs Vital signs: Vital Signs - 12hr 06/15/16 06/15/16 06/15/16 01:31 04:00 09:34 Temperature 97.5 F L 98.2 F 97.8 F Pulse Rate 95 H Pulse Rate [ 88 87 Left Radial] Pulse Rate [ 80 Radial] Respiratory 22 20 20 Rate Blood Pressure 90/56 92/57 100/63 [Left Arm] O2 Sat by Pulse 97 97 99 Oximetry 06/15/16 10:10 Temperature Pulse Rate Pulse Rate [ Left Radial] Pulse Rate [ Radial] Respiratory Rate Blood Pressure [Left Arm] O2 Sat by Pulse 99 Oximetry - General Appearance General appearance: well-developed, well-nourished EENT: ATNC Respiratory: Present: Clear to Ascultation Cardiology: regular, S1S2 Gastrointestinal: normal Integumentary: no rash Neurologic: alert and oriented x3 Musculoskeletal: other (no edema) Psychiatric: mood/affect appropriate, cooperative - Lab 06/15/16 05:38 06/15/16 05:38 Most recent lab results Calcium 7.1 mg/dL (8.4-10.2) L D 06/15/16 05:38
--- NOTE | 2016-06-15 15:50 | Progress Note ---
Assessment and Plan Assessment and plan: End-stage renal disease on hemodialysis - Nephrology consult appreciated Clotted AV fistula - Vascular surgery consult appreciated - Preferred to put vasc cath and postponed his surgery Leukocytosis - Trending down Severe anemia - Hemoglobin this morning was 6.3 - Transfused 2 units of blood Prophylaxis - On heparin I have discussed the management plan with the patient and her sons. History Interval history: Patient was seen and evaluated this morning, she denied any active bleeding from the site of fistula. Patient denied any chest pain. Hospitalist Physical - Physical exam Narrative exam: Not in cardiopulmonary distress. The patient appeared well nourished and normally developed. Vital signs as documented. Head exam is unremarkable. No scleral icterus . Neck is without jugular venous distension, thyromegaly, or carotid bruits. Lungs are clear to auscultation. Cardiac exam reveals regular rate and Rhythm. First and second heart sounds normal. No murmurs, rubs or gallops. Abdominal exam reveals normal bowel sounds, no masses, no organomegaly and no aortic enlargement. Extremities are nonedematous and both femoral and pedal pulses are normal. 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 No focal weakness. - Constitutional Vitals: Temp Pulse Resp BP Pulse Ox 98.1 F 88 20 84/52 99 06/15/16 15:31 06/15/16 15:31 06/15/16 15:31 06/15/16 15:31 06/15/16 10:10 General appearance: Present: no acute distress Results - Labs CBC & Chem 7: 06/15/16 05:38 06/15/16 05:38 Labs: Laboratory Last Values WBC 11.3 K/mm3 (4.5-11.0) H 06/15/16 05:38 RBC 2.04 M/mm3 (3.65-5.03) L 06/15/16 05:38 Hgb 6.3 gm/dl (10.1-14.3) L 06/15/16 05:38 Hct 20.0 % (30.3-42.9) L 06/15/16 05:38 MCV 98 fl (79-97) H 06/15/16 05:38 MCH 31 pg (28-32) 06/15/16 05:38 MCHC 32 % (30-34) 06/15/16 05:38 RDW 15.3 % (13.2-15.2) H 06/15/16 05:38 Plt Count 121 K/mm3 (140-440) L 06/15/16 05:38 Lymph % (Auto) 20.9 % (13.4-35.0) 06/15/16 05:38 [place] % (Auto) 10.7 % (0.0-7.3) H 06/15/16 05:38 Eos % (Auto) 10.8 % (0.0-4.3) H 06/15/16 05:38 Baso % (Auto) 0.7 % (0.0-1.8) 06/15/16 05:38 Lymph # 2.4 K/mm3 (1.2-5.4) 06/15/16 05:38 [place] # 1.2 K/mm3 (0.0-0.8) H 06/15/16 05:38 Eos # 1.2 K/mm3 (0.0-0.4) H 06/15/16 05:38 Baso # 0.1 K/mm3 (0.0-0.1) 06/15/16 05:38 Add Manual Diff Complete 06/13/16 11:53 Total Counted 100 06/13/16 11:53 Seg Neutrophils % 56.9 % (40.0-70.0) 06/15/16 05:38 Seg Neuts % (Manual) 88.0 % (40.0-70.0) H 06/13/16 11:53 Band Neutrophils % 0 % 06/13/16 11:53 Lymphocytes % (Manual) 4.0 % (13.4-35.0) L 06/13/16 11:53 Reactive Lymphs % (Man) 0 % 06/13/16 11:53 Monocytes % (Manual) 7.0 % (0.0-7.3) 06/13/16 11:53 Eosinophils % (Manual) 1.0 % (0.0-4.3) 06/13/16 11:53 Basophils % (Manual) 0 % (0.0-1.8) 06/13/16 11:53 Metamyelocytes % 0 % 06/13/16 11:53 Myelocytes % 0 % 06/13/16 11:53 Promyelocytes % 0 % 06/13/16 11:53 Blast Cells % 0 % 06/13/16 11:53 Nucleated RBC % Not Reportable 06/13/16 11:53 Seg Neutrophils # 6.4 K/mm3 (1.8-7.7) 06/15/16 05:38 Seg Neutrophils # Man 17.8 K/mm3 (1.8-7.7) H 06/13/16 11:53 Band Neutrophils # 0.0 K/mm3 06/13/16 11:53 Lymphocytes # (Manual) 0.8 K/mm3 (1.2-5.4) L 06/13/16 11:53 Abs React Lymphs (Man) 0.0 K/mm3 06/13/16 11:53 Monocytes # (Manual) 1.4 K/mm3 (0.0-0.8) H 06/13/16 11:53 Eosinophils # (Manual) 0.2 K/mm3 (0.0-0.4) 06/13/16 11:53 Basophils # (Manual) 0.0 K/mm3 (0.0-0.1) 06/13/16 11:53 Metamyelocytes # 0.0 K/mm3 06/13/16 11:53 Myelocytes # 0.0 K/mm3 06/13/16 11:53 Promyelocytes # 0.0 K/mm3 06/13/16 11:53 Blast Cells # 0.0 K/mm3 06/13/16 11:53 WBC Morphology Not Reportable 06/13/16 11:53 Hypersegmented Neuts Not Reportable 06/13/16 11:53 Hyposegmented Neuts Not Reportable 06/13/16 11:53 Hypogranular Neuts Not Reportable 06/13/16 11:53 Smudge Cells Not Reportable 06/13/16 11:53 Toxic Granulation Not Reportable 06/13/16 11:53 Toxic Vacuolation Not Reportable 06/13/16 11:53 Dohle Bodies Not Reportable 06/13/16 11:53 Pelger-Huet Anomaly Not Reportable 06/13/16 11:53 Yessy Rods Not Reportable 06/13/16 11:53 Platelet Estimate Appears normal 06/13/16 11:53 Clumped Platelets Not Reportable 06/13/16 11:53 Plt Clumps, EDTA Not Reportable 06/13/16 11:53 Large Platelets Not Reportable 06/13/16 11:53 Giant Platelets Not Reportable 06/13/16 11:53 Platelet Satelliting Not Reportable 06/13/16 11:53 Plt Morphology Comment Not Reportable 06/13/16 11:53 RBC Morphology Not Reportable 06/13/16 11:53 Dimorphic RBCs Not Reportable 06/13/16 11:53 Polychromasia Not Reportable 06/13/16 11:53 Hypochromasia Not Reportable 06/13/16 11:53 Poikilocytosis Not Reportable 06/13/16 11:53 Anisocytosis 1+ 06/13/16 11:53 Microcytosis Not Reportable 06/13/16 11:53 Macrocytosis Not Reportable 06/13/16 11:53 Spherocytes Not Reportable 06/13/16 11:53 Pappenheimer Bodies Not Reportable 06/13/16 11:53 Sickle Cells Not Reportable 06/13/16 11:53 Target Cells Not Reportable 06/13/16 11:53 Tear Drop Cells Not Reportable 06/13/16 11:53 Ovalocytes Not Reportable 06/13/16 11:53 Helmet Cells Not Reportable 06/13/16 11:53 Yi-[place] Bodies Not Reportable 06/13/16 11:53 [place] Rings Not Reportable 06/13/16 11:53 Yair Cells Not Reportable 06/13/16 11:53 Bite Cells Not Reportable 06/13/16 11:53 Crenated Cell Not Reportable 06/13/16 11:53 Elliptocytes Few 06/13/16 11:53 Acanthocytes (Spur) Not Reportable 06/13/16 11:53 Rouleaux Not Reportable 06/13/16 11:53 Hemoglobin C Crystals Not Reportable 06/13/16 11:53 Schistocytes Not Reportable 06/13/16 11:53 Malaria parasites Not Reportable 06/13/16 11:53 Temo Bodies Not Reportable 06/13/16 11:53 Hem Pathologist Commnt No 06/13/16 11:53 PT 15.5 Sec. (12.2-14.9) H 06/13/16 08:36 INR 1.24 (0.87-1.13) H 06/13/16 08:36 APTT 29.7 Sec. (24.2-36.6) 06/13/16 08:36 Sodium 139 mmol/L (137-145) 06/15/16 05:38 Potassium 4.1 mmol/L (3.6-5.0) D 06/15/16 05:38 Chloride 98.2 mmol/L (98-107) 06/15/16 05:38 Carbon Dioxide 27 mmol/L (22-30) D 06/15/16 05:38 Anion Gap 18 mmol/L 06/15/16 05:38 BUN 29 mg/dL (7-17) H 06/15/16 05:38 Creatinine 6.6 mg/dL (0.7-1.2) H 06/15/16 05:38 Estimated GFR 8 ml/min 06/15/16 05:38 BUN/Creatinine Ratio 4.39 % 06/15/16 05:38 Glucose 85 mg/dL (65-100) 06/15/16 05:38 POC Glucose 98 (70-105) 06/15/16 00:02 Calcium 7.1 mg/dL (8.4-10.2) L D 06/15/16 05:38 Total Bilirubin 0.4 mg/dL (0.1-1.2) 06/13/16 08:36 AST 12 units/L (5-40) 06/13/16 08:36 ALT 8 units/L (7-56) 06/13/16 08:36 Alkaline Phosphatase 60 units/L (35-129) 06/13/16 08:36 Total Protein 5.5 g/dL (6.3-8.2) L 06/13/16 08:36 Albumin 2.8 g/dL (3.9-5) L 06/13/16 08:36 Albumin/Globulin Ratio 1.0 % 06/13/16 08:36 Blood Type A POSITIVE 06/13/16 13:32 Antibody Screen Negative 06/13/16 13:32 Crossmatch See Detail 06/13/16 13:32 Hemoglobin is 6.3
--- NOTE | 2016-06-15 16:20 | Progress Note ---
Assessment and Plan Not clear at this point if AVG is salvageable. Vas cath placed due to marked leukocytosis. This appears to be trended down. Will plan on conversion to PC on Saturday. New avg vs interpositioned graft as outpt. Discussed with patient and family. - Patient Problems (1) Hemodialysis graft malfunction Current Visit: Yes Status: Acute Qualifiers: Encounter type: E (2) Leukocytosis Current Visit: Yes Status: Acute Qualifiers: Leukocytosis type: L (3) End-stage renal disease on hemodialysis Current Visit: Yes Status: Acute (4) Hypertension Current Visit: Yes Status: Acute Qualifiers: Hypertension type: H (5) Hyperlipidemia Current Visit: Yes Status: Acute Qualifiers: Hyperlipidemia type: H Subjective Date of service: 06/15/16 Interval history: Pt awake and alert. She denies complaint at present. Objective - Constitutional Vitals: Vital Signs - 12hr 06/15/16 06/15/16 06/15/16 09:34 10:10 15:16 Temperature 97.8 F 98.6 F Pulse Rate 87 Pulse Rate [ 80 Radial] Respiratory 20 20 Rate Blood Pressure 85/56 Blood Pressure 100/63 [Left Arm] O2 Sat by Pulse 99 99 Oximetry 06/15/16 06/15/16 15:31 15:59 Temperature 98.1 F 98.0 F Pulse Rate 88 86 Pulse Rate [ Radial] Respiratory 20 20 Rate Blood Pressure 84/52 84/52 Blood Pressure [Left Arm] O2 Sat by Pulse Oximetry General appearance: Present: no acute distress - EENT Eyes: EOM intact ENT: hearing intact - Respiratory Respiratory effort: normal Extremities: abnormal (right upper arm, pulse in avg site. Bandages (tegaderm) removed escharge liquified, and 1-2mm hole over avg. Skin atop is fixed. No erythema , scant amount of bloody ooze from avg puncture site ) - Neurologic Neurologic: no focal deficits - Psychiatric Psychiatric: appropriate mood/affect, intact judgment & insight, cooperative - Labs CBC & Chem 7: 06/15/16 05:38 06/15/16 05:38 Labs: Abnormal lab results 06/13/16 06/14/16 06/15/16 Range/Units 13:32 21:25 05:38 WBC 13.0 H 11.3 H (4.5-11.0) K/mm3 RBC 2.30 L 2.04 L (3.65-5.03) M/mm3 Hgb 7.1 L 6.3 L (10.1-14.3) gm/dl Hct 22.4 L D 20.0 L (30.3-42.9) % MCV 98 H (79-97) fl RDW 15.3 H (13.2-15.2) % Plt Count 124 L 121 L (140-440) K/mm3 [place] % (Auto) 10.8 H 10.7 H (0.0-7.3) % Eos % (Auto) 5.9 H 10.8 H (0.0-4.3) % [place] # 1.4 H 1.2 H (0.0-0.8) K/mm3 Eos # 0.8 H 1.2 H (0.0-0.4) K/mm3 Seg Neutrophils # 8.5 H (1.8-7.7) K/mm3 BUN (7-17) mg/dL Creatinine (0.7-1.2) mg/dL Calcium (8.4-10.2) mg/dL Crossmatch See Detail 06/15/16 Range/Units 05:38 WBC (4.5-11.0) K/mm3 RBC (3.65-5.03) M/mm3 Hgb (10.1-14.3) gm/dl Hct (30.3-42.9) % MCV (79-97) fl RDW (13.2-15.2) % Plt Count (140-440) K/mm3 [place] % (Auto) (0.0-7.3) % Eos % (Auto) (0.0-4.3) % [place] # (0.0-0.8) K/mm3 Eos # (0.0-0.4) K/mm3 Seg Neutrophils # (1.8-7.7) K/mm3 BUN 29 H (7-17) mg/dL Creatinine 6.6 H (0.7-1.2) mg/dL Calcium 7.1 L D (8.4-10.2) mg/dL Crossmatch
[2016-06-15] MEDS: ZOCOR PO SCH (22:24)
[2016-06-16 06:54] LABS: Basophils % (Auto) 0.4 % (0.0-1.8); Eosinophils % (Auto) 12.9 % (0.0-4.3); Hemoglobin 8.2 gm/dl (10.1-14.3); Mean Corpuscular HGB Conc 33 % (30-34); Mean Corpuscular Hemoglobin 32 pg (28-32); Mean Corpuscular Volume 97 fl (79-97); Platelet Count 123 K/mm3 (140-440); Red Blood Count 2.58 M/mm3 (3.65-5.03); Red Cell Distribution Width 16.2 % (13.2-15.2); White Blood Count 11.9 K/mm3 (4.5-11.0)
[2016-06-16 07:12] LABS: BUN/Creatinine Ratio 4.28; Calcium 7.1 mg/dL (8.4-10.2); Chloride 99.6 mmol/L (98-107); Potassium 4.2 mmol/L (3.6-5.0)
[2016-06-16] MEDS: ROCEPHIN/NS 1 GM/50 ML 1 GM/50 ML BAG IV SCH (10:57)
[2016-06-16] MEDS: PEPCID PO SCH (10:57)
--- NOTE | 2016-06-16 13:51 | Progress Note ---
Assessment and Plan Impression: * End stage renal disease on HD (outpatient MWF schedule) * Malfunctioning AVG * Anemia secondary to acute blood loss vs ESRD * Leukocytosis - reactive vs infectious; trending down * Secondary hyperparathyroidism Plan: * Hemodiaylsis today via vascath * Vascular findings reviewed * Blood cx pending * Abx per primary team * s/p pRBC x 2 units * Renal diet; patient does not take binders * Epogen with dialysis Subjective Date of service: 06/16/16 Principal diagnosis: esrd Interval history: resting well in bed today Objective - Exam Narrative Exam: General appearance: well-developed, well-nourished EENT: ATNC Respiratory: Present: Clear to Ascultation Cardiology: regular, S1S2 Gastrointestinal: normal Integumentary: no rash Neurologic: alert and oriented x3 Musculoskeletal: other (no edema) Psychiatric: mood/affect appropriate, cooperative - Vital Signs Vital signs: Vital Signs - 12hr 06/16/16 06/16/16 06/16/16 02:05 03:53 05:10 Temperature 98.4 F 98.0 F Pulse Rate 74 87 Pulse Rate [ 70 Left Radial] Respiratory 18 18 Rate Blood Pressure 96/61 Blood Pressure 89/61 [Left Arm] O2 Sat by Pulse 100 Oximetry 06/16/16 06/16/16 06/16/16 08:55 10:00 10:59 Temperature 98.3 F Pulse Rate 76 Pulse Rate [ 76 Left Radial] Respiratory 20 Rate Blood Pressure Blood Pressure 103/70 [Left Arm] O2 Sat by Pulse 100 99 Oximetry - Lab 06/16/16 05:57 06/16/16 05:57 Most recent lab results Calcium 7.1 mg/dL (8.4-10.2) L 06/16/16 05:57
--- NOTE | 2016-06-16 16:04 | Progress Note ---
Assessment and Plan Assessment and plan: End-stage renal disease on hemodialysis - Nephrology consult appreciated - Is going to have hemodialysis today Clotted AV fistula - Vascular surgery consult appreciated - Preferred to put vasc cath and postponed his surgery - We will have surgery on Saturday Leukocytosis - Trending down Severe anemia - Transfused 2 units of blood, hemoglobin posttransfusion is 8.2 Prophylaxis - On heparin I have discussed the management plan with the patient and her sons. History Interval history: Patient was seen and evaluated this morning, she denied any active bleeding from the site of fistula. Patient denied any chest pain. Hospitalist Physical - Physical exam Narrative exam: Not in cardiopulmonary distress. The patient appeared well nourished and normally developed. Vital signs as documented. Head exam is unremarkable. No scleral icterus . Neck is without jugular venous distension, thyromegaly, or carotid bruits. Lungs are clear to auscultation. Cardiac exam reveals regular rate and Rhythm. First and second heart sounds normal. No murmurs, rubs or gallops. Abdominal exam reveals normal bowel sounds, no masses, no organomegaly and no aortic enlargement. Extremities are nonedematous and both femoral and pedal pulses are normal. 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 No focal weakness. - Constitutional Vitals: Temp Pulse Resp BP Pulse Ox 98.3 F 76 20 103/70 99 06/16/16 08:55 06/16/16 10:59 06/16/16 08:55 06/16/16 08:55 06/16/16 10:00 General appearance: Present: no acute distress Results - Labs CBC & Chem 7: 06/16/16 05:57 06/16/16 05:57 Labs: Laboratory Last Values WBC 11.9 K/mm3 (4.5-11.0) H 06/16/16 05:57 RBC 2.58 M/mm3 (3.65-5.03) L 06/16/16 05:57 Hgb 8.2 gm/dl (10.1-14.3) L 06/16/16 05:57 Hct 25.0 % (30.3-42.9) L 06/16/16 05:57 MCV 97 fl (79-97) 06/16/16 05:57 MCH 32 pg (28-32) 06/16/16 05:57 MCHC 33 % (30-34) 06/16/16 05:57 RDW 16.2 % (13.2-15.2) H 06/16/16 05:57 Plt Count 123 K/mm3 (140-440) L 06/16/16 05:57 Lymph % (Auto) 17.0 % (13.4-35.0) 06/16/16 05:57 [place] % (Auto) 12.9 % (0.0-7.3) H 06/16/16 05:57 Eos % (Auto) 12.9 % (0.0-4.3) H 06/16/16 05:57 Baso % (Auto) 0.4 % (0.0-1.8) 06/16/16 05:57 Lymph # 2.0 K/mm3 (1.2-5.4) 06/16/16 05:57 [place] # 1.5 K/mm3 (0.0-0.8) H 06/16/16 05:57 Eos # 1.5 K/mm3 (0.0-0.4) H 06/16/16 05:57 Baso # 0.0 K/mm3 (0.0-0.1) 06/16/16 05:57 Add Manual Diff Complete 06/13/16 11:53 Total Counted 100 06/13/16 11:53 Seg Neutrophils % 56.8 % (40.0-70.0) 06/16/16 05:57 Seg Neuts % (Manual) 88.0 % (40.0-70.0) H 06/13/16 11:53 Band Neutrophils % 0 % 06/13/16 11:53 Lymphocytes % (Manual) 4.0 % (13.4-35.0) L 06/13/16 11:53 Reactive Lymphs % (Man) 0 % 06/13/16 11:53 Monocytes % (Manual) 7.0 % (0.0-7.3) 06/13/16 11:53 Eosinophils % (Manual) 1.0 % (0.0-4.3) 06/13/16 11:53 Basophils % (Manual) 0 % (0.0-1.8) 06/13/16 11:53 Metamyelocytes % 0 % 06/13/16 11:53 Myelocytes % 0 % 06/13/16 11:53 Promyelocytes % 0 % 06/13/16 11:53 Blast Cells % 0 % 06/13/16 11:53 Nucleated RBC % Not Reportable 06/13/16 11:53 Seg Neutrophils # 6.8 K/mm3 (1.8-7.7) 06/16/16 05:57 Seg Neutrophils # Man 17.8 K/mm3 (1.8-7.7) H 06/13/16 11:53 Band Neutrophils # 0.0 K/mm3 06/13/16 11:53 Lymphocytes # (Manual) 0.8 K/mm3 (1.2-5.4) L 06/13/16 11:53 Abs React Lymphs (Man) 0.0 K/mm3 06/13/16 11:53 Monocytes # (Manual) 1.4 K/mm3 (0.0-0.8) H 06/13/16 11:53 Eosinophils # (Manual) 0.2 K/mm3 (0.0-0.4) 06/13/16 11:53 Basophils # (Manual) 0.0 K/mm3 (0.0-0.1) 06/13/16 11:53 Metamyelocytes # 0.0 K/mm3 06/13/16 11:53 Myelocytes # 0.0 K/mm3 06/13/16 11:53 Promyelocytes # 0.0 K/mm3 06/13/16 11:53 Blast Cells # 0.0 K/mm3 06/13/16 11:53 WBC Morphology Not Reportable 06/13/16 11:53 Hypersegmented Neuts Not Reportable 06/13/16 11:53 Hyposegmented Neuts Not Reportable 06/13/16 11:53 Hypogranular Neuts Not Reportable 06/13/16 11:53 Smudge Cells Not Reportable 06/13/16 11:53 Toxic Granulation Not Reportable 06/13/16 11:53 Toxic Vacuolation Not Reportable 06/13/16 11:53 Dohle Bodies Not Reportable 06/13/16 11:53 Pelger-Huet Anomaly Not Reportable 06/13/16 11:53 Yessy Rods Not Reportable 06/13/16 11:53 Platelet Estimate Appears normal 06/13/16 11:53 Clumped Platelets Not Reportable 06/13/16 11:53 Plt Clumps, EDTA Not Reportable 06/13/16 11:53 Large Platelets Not Reportable 06/13/16 11:53 Giant Platelets Not Reportable 06/13/16 11:53 Platelet Satelliting Not Reportable 06/13/16 11:53 Plt Morphology Comment Not Reportable 06/13/16 11:53 RBC Morphology Not Reportable 06/13/16 11:53 Dimorphic RBCs Not Reportable 06/13/16 11:53 Polychromasia Not Reportable 06/13/16 11:53 Hypochromasia Not Reportable 06/13/16 11:53 Poikilocytosis Not Reportable 06/13/16 11:53 Anisocytosis 1+ 06/13/16 11:53 Microcytosis Not Reportable 06/13/16 11:53 Macrocytosis Not Reportable 06/13/16 11:53 Spherocytes Not Reportable 06/13/16 11:53 Pappenheimer Bodies Not Reportable 06/13/16 11:53 Sickle Cells Not Reportable 06/13/16 11:53 Target Cells Not Reportable 06/13/16 11:53 Tear Drop Cells Not Reportable 06/13/16 11:53 Ovalocytes Not Reportable 06/13/16 11:53 Helmet Cells Not Reportable 06/13/16 11:53 [place] Bodies Not Reportable 06/13/16 11:53 [place] Rings Not Reportable 06/13/16 11:53 [place] Cells Not Reportable 06/13/16 11:53 Bite Cells Not Reportable 06/13/16 11:53 Crenated Cell Not Reportable 06/13/16 11:53 Elliptocytes Few 06/13/16 11:53 Acanthocytes (Spur) Not Reportable 06/13/16 11:53 Rouleaux Not Reportable 06/13/16 11:53 Hemoglobin C Crystals Not Reportable 06/13/16 11:53 Schistocytes Not Reportable 06/13/16 11:53 Malaria parasites Not Reportable 06/13/16 11:53 Temo Bodies Not Reportable 06/13/16 11:53 Hem Pathologist Commnt No 06/13/16 11:53 PT 15.5 Sec. (12.2-14.9) H 06/13/16 08:36 INR 1.24 (0.87-1.13) H 06/13/16 08:36 APTT 29.7 Sec. (24.2-36.6) 06/13/16 08:36 Sodium 140 mmol/L (137-145) 06/16/16 05:57 Potassium 4.2 mmol/L (3.6-5.0) 06/16/16 05:57 Chloride 99.6 mmol/L (98-107) 06/16/16 05:57 Carbon Dioxide 24 mmol/L (22-30) 06/16/16 05:57 Anion Gap 21 mmol/L 06/16/16 05:57 BUN 39 mg/dL (7-17) H 06/16/16 05:57 Creatinine 9.1 mg/dL (0.7-1.2) H 06/16/16 05:57 Estimated GFR 5 ml/min 06/16/16 05:57 BUN/Creatinine Ratio 4.28 % 06/16/16 05:57 Glucose 84 mg/dL (65-100) 06/16/16 05:57 POC Glucose 107 (70-105) H 06/16/16 12:49 Calcium 7.1 mg/dL (8.4-10.2) L 06/16/16 05:57 Total Bilirubin 0.4 mg/dL (0.1-1.2) 06/13/16 08:36 AST 12 units/L (5-40) 06/13/16 08:36 ALT 8 units/L (7-56) 06/13/16 08:36 Alkaline Phosphatase 60 units/L (35-129) 06/13/16 08:36 Total Protein 5.5 g/dL (6.3-8.2) L 06/13/16 08:36 Albumin 2.8 g/dL (3.9-5) L 06/13/16 08:36 Albumin/Globulin Ratio 1.0 % 06/13/16 08:36 Blood Type A POSITIVE 06/13/16 13:32 Antibody Screen Negative 06/13/16 13:32 Crossmatch See Detail 06/13/16 13:32
[2016-06-16] MEDS: HEPARIN IV PRN (21:31)
[2016-06-16] MEDS: ZOCOR PO SCH (22:27)
[2016-06-17 07:59] LABS: Basophils % (Auto) 0.7 % (0.0-1.8); Eosinophils % (Auto) 9.7 % (0.0-4.3); Hematocrit 25.6 % (30.3-42.9); Hemoglobin 8.5 gm/dl (10.1-14.3); Mean Corpuscular HGB Conc 33 % (30-34); Mean Corpuscular Hemoglobin 32 pg (28-32); Mean Corpuscular Volume 95 fl (79-97); Platelet Count 137 K/mm3 (140-440); Red Blood Count 2.68 M/mm3 (3.65-5.03); Red Cell Distribution Width 15.9 % (13.2-15.2); White Blood Count 10.4 K/mm3 (4.5-11.0)
[2016-06-17 08:11] LABS: BUN/Creatinine Ratio 3.15; Chloride 102.8 mmol/L (98-107); Potassium 3.9 mmol/L (3.6-5.0)
--- NOTE | 2016-06-17 08:20 | Progress Note ---
Assessment and Plan Impression: * End stage renal disease on HD (outpatient MWF schedule) * Malfunctioning AVG * Anemia secondary to acute blood loss vs ESRD * Leukocytosis - reactive vs infectious; trending down * Secondary hyperparathyroidism Plan: * Hemodiaylsis mwf, plan after tunnelled catheter placement * Vascular findings reviewed--plan for tunnelled cath tomorrow * Blood cx pending * Abx per primary team * s/p pRBC x 2 units * Renal diet; patient does not take binders * Epogen with dialysis Subjective Date of service: 06/17/16 Principal diagnosis: esrd Interval history: resting well in bed today Objective - Exam Narrative Exam: General appearance: well-developed, well-nourished EENT: ATNC Respiratory: Present: Clear to Ascultation Cardiology: regular, S1S2 Gastrointestinal: normal Integumentary: no rash Neurologic: alert and oriented x3 Musculoskeletal: other (no edema) Psychiatric: mood/affect appropriate, cooperative - Vital Signs Vital signs: Vital Signs - 12hr 06/16/16 06/16/16 06/16/16 19:30 19:45 20:00 Temperature Pulse Rate 71 72 70 Pulse Rate [ Left Radial] Respiratory Rate Blood Pressure 113/56 114/70 109/66 Blood Pressure [Left Arm] O2 Sat by Pulse Oximetry 06/16/16 06/16/16 06/16/16 20:15 20:30 20:45 Temperature Pulse Rate 69 75 72 Pulse Rate [ Left Radial] Respiratory Rate Blood Pressure 113/70 109/63 107/71 Blood Pressure [Left Arm] O2 Sat by Pulse Oximetry 06/16/16 06/16/16 06/16/16 21:00 21:15 21:30 Temperature 98.5 F Pulse Rate 68 80 77 Pulse Rate [ Left Radial] Respiratory 18 Rate Blood Pressure 118/74 124/78 115/77 Blood Pressure [Left Arm] O2 Sat by Pulse Oximetry 06/16/16 06/17/16 06/17/16 22:00 01:17 05:42 Temperature 99.5 F 99.0 F Pulse Rate Pulse Rate [ 84 77 Left Radial] Respiratory 18 18 18 Rate Blood Pressure Blood Pressure 101/67 100/63 [Left Arm] O2 Sat by Pulse 98 97 Oximetry - Lab 06/17/16 07:30 06/16/16 05:57 Most recent lab results Calcium 7.1 mg/dL (8.4-10.2) L 06/16/16 05:57
[2016-06-17] MEDS: PEPCID PO SCH (10:21)
[2016-06-17] MEDS: ROCEPHIN/NS 1 GM/50 ML 1 GM/50 ML BAG IV SCH (10:21)
--- NOTE | 2016-06-17 13:33 | Progress Note ---
Assessment and Plan Assessment and plan: End-stage renal disease on hemodialysis - Nephrology consult appreciated - Is going to have hemodialysis today Clotted AV fistula - Vascular surgery consult appreciated - Will have surgery tomorrow Leukocytosis - resolved - Continue Iv antibiotics Severe anemia - Transfused 2 units of blood - Hemoglobin is holding Prophylaxis - On heparin I have discussed the management plan with the patient. History Interval history: Patient was seen and evaluated this morning, she denied any active bleeding from the site of fistula. Patient denied any chest pain. Hospitalist Physical - Physical exam Narrative exam: Not in cardiopulmonary distress. The patient appeared well nourished and normally developed. Vital signs as documented. Head exam is unremarkable. No scleral icterus . Neck is without jugular venous distension, thyromegaly, or carotid bruits. Lungs are clear to auscultation. Cardiac exam reveals regular rate and Rhythm. First and second heart sounds normal. No murmurs, rubs or gallops. Abdominal exam reveals normal bowel sounds, no masses, no organomegaly and no aortic enlargement. Extremities are nonedematous and both femoral and pedal pulses are normal. 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 No focal weakness. - Constitutional Vitals: Temp Pulse Resp BP Pulse Ox 98.9 F 77 18 105/71 98 06/17/16 08:00 06/17/16 08:36 06/17/16 08:00 06/17/16 08:00 06/17/16 08:00 General appearance: Present: no acute distress Results - Labs CBC & Chem 7: 06/17/16 07:30 06/17/16 07:30 Labs: Laboratory Last Values WBC 10.4 K/mm3 (4.5-11.0) 06/17/16 07:30 RBC 2.68 M/mm3 (3.65-5.03) L 06/17/16 07:30 Hgb 8.5 gm/dl (10.1-14.3) L 06/17/16 07:30 Hct 25.6 % (30.3-42.9) L 06/17/16 07:30 MCV 95 fl (79-97) 06/17/16 07:30 MCH 32 pg (28-32) 06/17/16 07:30 MCHC 33 % (30-34) 06/17/16 07:30 RDW 15.9 % (13.2-15.2) H 06/17/16 07:30 Plt Count 137 K/mm3 (140-440) L 06/17/16 07:30 Lymph % (Auto) 14.6 % (13.4-35.0) 06/17/16 07:30 [place] % (Auto) 12.8 % (0.0-7.3) H 06/17/16 07:30 Eos % (Auto) 9.7 % (0.0-4.3) H 06/17/16 07:30 Baso % (Auto) 0.7 % (0.0-1.8) 06/17/16 07:30 Lymph # 1.5 K/mm3 (1.2-5.4) 06/17/16 07:30 [place] # 1.3 K/mm3 (0.0-0.8) H 06/17/16 07:30 Eos # 1.0 K/mm3 (0.0-0.4) H 06/17/16 07:30 Baso # 0.1 K/mm3 (0.0-0.1) 06/17/16 07:30 Add Manual Diff Complete 06/13/16 11:53 Total Counted 100 06/13/16 11:53 Seg Neutrophils % 62.2 % (40.0-70.0) 06/17/16 07:30 Seg Neuts % (Manual) 88.0 % (40.0-70.0) H 06/13/16 11:53 Band Neutrophils % 0 % 06/13/16 11:53 Lymphocytes % (Manual) 4.0 % (13.4-35.0) L 06/13/16 11:53 Reactive Lymphs % (Man) 0 % 06/13/16 11:53 Monocytes % (Manual) 7.0 % (0.0-7.3) 06/13/16 11:53 Eosinophils % (Manual) 1.0 % (0.0-4.3) 06/13/16 11:53 Basophils % (Manual) 0 % (0.0-1.8) 06/13/16 11:53 Metamyelocytes % 0 % 06/13/16 11:53 Myelocytes % 0 % 06/13/16 11:53 Promyelocytes % 0 % 06/13/16 11:53 Blast Cells % 0 % 06/13/16 11:53 Nucleated RBC % Not Reportable 06/13/16 11:53 Seg Neutrophils # 6.5 K/mm3 (1.8-7.7) 06/17/16 07:30 Seg Neutrophils # Man 17.8 K/mm3 (1.8-7.7) H 06/13/16 11:53 Band Neutrophils # 0.0 K/mm3 06/13/16 11:53 Lymphocytes # (Manual) 0.8 K/mm3 (1.2-5.4) L 06/13/16 11:53 Abs React Lymphs (Man) 0.0 K/mm3 06/13/16 11:53 Monocytes # (Manual) 1.4 K/mm3 (0.0-0.8) H 06/13/16 11:53 Eosinophils # (Manual) 0.2 K/mm3 (0.0-0.4) 06/13/16 11:53 Basophils # (Manual) 0.0 K/mm3 (0.0-0.1) 06/13/16 11:53 Metamyelocytes # 0.0 K/mm3 06/13/16 11:53 Myelocytes # 0.0 K/mm3 06/13/16 11:53 Promyelocytes # 0.0 K/mm3 06/13/16 11:53 Blast Cells # 0.0 K/mm3 06/13/16 11:53 WBC Morphology Not Reportable 06/13/16 11:53 Hypersegmented Neuts Not Reportable 06/13/16 11:53 Hyposegmented Neuts Not Reportable 06/13/16 11:53 Hypogranular Neuts Not Reportable 06/13/16 11:53 Smudge Cells Not Reportable 06/13/16 11:53 Toxic Granulation Not Reportable 06/13/16 11:53 Toxic Vacuolation Not Reportable 06/13/16 11:53 Dohle Bodies Not Reportable 06/13/16 11:53 Pelger-Huet Anomaly Not Reportable 06/13/16 11:53 Yessy Rods Not Reportable 06/13/16 11:53 Platelet Estimate Appears normal 06/13/16 11:53 Clumped Platelets Not Reportable 06/13/16 11:53 Plt Clumps, EDTA Not Reportable 06/13/16 11:53 Large Platelets Not Reportable 06/13/16 11:53 Giant Platelets Not Reportable 06/13/16 11:53 Platelet Satelliting Not Reportable 06/13/16 11:53 Plt Morphology Comment Not Reportable 06/13/16 11:53 RBC Morphology Not Reportable 06/13/16 11:53 Dimorphic RBCs Not Reportable 06/13/16 11:53 Polychromasia Not Reportable 06/13/16 11:53 Hypochromasia Not Reportable 06/13/16 11:53 Poikilocytosis Not Reportable 06/13/16 11:53 Anisocytosis 1+ 06/13/16 11:53 Microcytosis Not Reportable 06/13/16 11:53 Macrocytosis Not Reportable 06/13/16 11:53 Spherocytes Not Reportable 06/13/16 11:53 Pappenheimer Bodies Not Reportable 06/13/16 11:53 Sickle Cells Not Reportable 06/13/16 11:53 Target Cells Not Reportable 06/13/16 11:53 Tear Drop Cells Not Reportable 06/13/16 11:53 Ovalocytes Not Reportable 06/13/16 11:53 Helmet Cells Not Reportable 06/13/16 11:53 Yi-[place] Bodies Not Reportable 06/13/16 11:53 [place] Rings Not Reportable 06/13/16 11:53 [place] Cells Not Reportable 06/13/16 11:53 Bite Cells Not Reportable 06/13/16 11:53 Crenated Cell Not Reportable 06/13/16 11:53 Elliptocytes Few 06/13/16 11:53 Acanthocytes (Spur) Not Reportable 06/13/16 11:53 Rouleaux Not Reportable 06/13/16 11:53 Hemoglobin C Crystals Not Reportable 06/13/16 11:53 Schistocytes Not Reportable 06/13/16 11:53 Malaria parasites Not Reportable 06/13/16 11:53 Temo Bodies Not Reportable 06/13/16 11:53 Hem Pathologist Commnt No 06/13/16 11:53 PT 15.5 Sec. (12.2-14.9) H 06/13/16 08:36 INR 1.24 (0.87-1.13) H 06/13/16 08:36 APTT 29.7 Sec. (24.2-36.6) 06/13/16 08:36 Sodium 146 mmol/L (137-145) H 06/17/16 07:30 Potassium 3.9 mmol/L (3.6-5.0) 06/17/16 07:30 Chloride 102.8 mmol/L (98-107) 06/17/16 07:30 Carbon Dioxide 28 mmol/L (22-30) 06/17/16 07:30 Anion Gap 19 mmol/L 06/17/16 07:30 BUN 18 mg/dL (7-17) H 06/17/16 07:30 Creatinine 5.7 mg/dL (0.7-1.2) H 06/17/16 07:30 Estimated GFR 9 ml/min 06/17/16 07:30 BUN/Creatinine Ratio 3.15 % 06/17/16 07:30 Glucose 94 mg/dL (65-100) 06/17/16 07:30 POC Glucose 92 (70-105) 06/16/16 22:28 Calcium 8.0 mg/dL (8.4-10.2) L 06/17/16 07:30 Total Bilirubin 0.4 mg/dL (0.1-1.2) 06/13/16 08:36 AST 12 units/L (5-40) 06/13/16 08:36 ALT 8 units/L (7-56) 06/13/16 08:36 Alkaline Phosphatase 60 units/L (35-129) 06/13/16 08:36 Total Protein 5.5 g/dL (6.3-8.2) L 06/13/16 08:36 Albumin 2.8 g/dL (3.9-5) L 06/13/16 08:36 Albumin/Globulin Ratio 1.0 % 06/13/16 08:36 Blood Type A POSITIVE 06/13/16 13:32 Antibody Screen Negative 06/13/16 13:32 Crossmatch See Detail 06/13/16 13:32
[2016-06-17] MEDS: ZOCOR PO SCH (21:56)
[2016-06-18 05:59] LABS: Basophils % (Auto) 0.8 % (0.0-1.8); Hematocrit 24.3 % (30.3-42.9); Hemoglobin 8.2 gm/dl (10.1-14.3); Mean Corpuscular HGB Conc 34 % (30-34); Mean Corpuscular Hemoglobin 32 pg (28-32); Mean Corpuscular Volume 96 fl (79-97); Platelet Count 166 K/mm3 (140-440); Red Blood Count 2.53 M/mm3 (3.65-5.03); Red Cell Distribution Width 16.3 % (13.2-15.2); White Blood Count 10.8 K/mm3 (4.5-11.0)
[2016-06-18 06:17] LABS: BUN/Creatinine Ratio 3.75; Potassium 4.3 mmol/L (3.6-5.0)
[2016-06-18] MEDS ORDERED: SUBLIMAZE ONE (07:36)
[2016-06-18] MEDS ORDERED: VERSED ONE (07:36)
[2016-06-18] MEDS ORDERED: HEPARIN/NS 5000 UNIT/500ML(CATH LAB) 500 ML IR ONE (07:36)
[2016-06-18] MEDS ORDERED: ANCEF/STERILE WATER 2 GM/20 ML 2 GM/20 ML SYRINGE IV ONE (07:37)
[2016-06-18] MEDS ORDERED: XYLOCAINE 2% INFILTRATI ONE (07:37)
[2016-06-18] MEDS ORDERED: NACL 0.9% 250ML 250 ML ONE (07:37)
[2016-06-18] MEDS ORDERED: ANCEF/STERILE WATER 2 GM/20 ML IV NR (08:00)
[2016-06-18] MEDS: HEPARIN 10,000 UNITS/10 ML ONE ×2 (08:17→08:18)
--- NOTE | 2016-06-18 08:27 | Progress Note ---
Assessment and Plan Impression: * End stage renal disease on HD (outpatient MWF schedule) * Malfunctioning AVG * Anemia secondary to acute blood loss vs ESRD * Leukocytosis - reactive vs infectious; trending down * Secondary hyperparathyroidism Plan: * Hemodiaylsis mwf, plan after tunnelled catheter placement * Vascular findings reviewed--plan for tunnelled cath today * Blood cx pending * Abx per primary team * s/p pRBC x 2 units * Renal diet; patient does not take binders * Epogen with dialysis Subjective Date of service: 06/18/16 Principal diagnosis: esrd Interval history: resting well in bed today Objective - Exam Narrative Exam: General appearance: well-developed, well-nourished EENT: ATNC Respiratory: Present: Clear to Ascultation Cardiology: regular, S1S2 Gastrointestinal: normal Integumentary: no rash Neurologic: alert and oriented x3 Musculoskeletal: other (no edema) Psychiatric: mood/affect appropriate, cooperative - Vital Signs Vital signs: Vital Signs - 12hr 06/17/16 06/17/16 06/18/16 20:57 23:00 00:59 Temperature 99.3 F 99.0 F Pulse Rate 85 Pulse Rate [ 83 77 Left Radial] Pulse Rate [ Right Radial] Respiratory 18 18 Rate Blood Pressure 87/54 99/60 [Left Arm] O2 Sat by Pulse 98 97 Oximetry 06/18/16 05:40 Temperature 98.4 F Pulse Rate Pulse Rate [ Left Radial] Pulse Rate [ 72 Right Radial] Respiratory 18 Rate Blood Pressure 107/71 [Left Arm] O2 Sat by Pulse Oximetry - Lab 06/18/16 05:36 06/18/16 05:36 Most recent lab results Calcium 8.0 mg/dL (8.4-10.2) L 06/18/16 05:36
--- NOTE | 2016-06-18 10:19 | Operative Report ---
Operative Report Operative Report: EXAM: FLUOROSCOPIC GUIDED EXCHANGE OF VAS CATH TO TUNNELED HEMODIALYSIS CATHETER CLINICAL INDICATION: PATIENT WITH A HISTORY OF END-STAGE RENAL DISEASE REQUIRING LONGER-TERM DIALYSIS ACCESS. DATE: 06/18/2016 PROCEDURE: Following an explanation of the risks, benefits and alternatives; written informed consent was obtained. The patient was brought to the angiographic suite and placed in supine position on the examination table. Initial fluoroscopic imaging demonstrated appropriate positioning of the patient 's previously placed Vas-Cath. The patient's right neck and chest wall were prepped and draped in the usual sterile fashion. 1% lidocaine was used for anesthesia. Under fluoroscopic guidance a 0.035 guidewire was advanced to the patient's indwelling Vas-Cath. The guidewire was advanced into the IVC to document intravenous positioning and the catheter was removed intact. A 16 [place] peel- away sheath was then placed over the guidewire under fluoroscopy and advanced centrally. An appropriate catheter exit site was chosen along the anterior right chest wall. 1% lidocaine was used for anesthesia at the catheter exit site along the tunnel tract. A Bard 23 cm tunneled dialysis catheter was then tunneled antegrade from the catheter exit site to the venotomy site. The catheter was then inserted through the peel-away sheath and positioned with the tip in the proximal right atrium. The peel-away sheath was removed. Both ports flushed and aspirated easily and were then locked with appropriate volumes of heparin. The venotomy site was closed using 3-0 Vicryl suture. Throughout Vicryl suture was also used to approximate the catheter exit site. Dermabond and sterile dressings were then applied. The patient tolerated the procedure well. There were no immediate post procedure complications. Sedation was performed under the guidance of radiologic nursing. Continuous cardiopulmonary monitoring was utilized. IMPRESSION: 1) Fluoroscopic guided exchange of Vas-Cath to 23 cm tunneled hemodialysis catheter.
[2016-06-18] MEDS: PEPCID PO SCH (11:27)
[2016-06-18] MEDS: ROCEPHIN/NS 1 GM/50 ML 1 GM/50 ML BAG IV SCH (11:28)
--- NOTE | 2016-06-18 13:57 | Progress Note ---
Assessment and Plan Assessment and plan: End-stage renal disease on hemodialysis - Nephrology consult appreciated - On hemodialysis Clotted AV fistula - Vascular surgery consult appreciated - permcath placed this morning Leukocytosis - resolved - Continue Iv antibiotics Severe anemia - Transfused 2 units of blood - Hemoglobin is stable Prophylaxis - On heparin I have discussed the management plan with the patient and son. Disposition - Per Vascular surgery History Interval history: Patient was seen and evaluated this morning, she denied any active bleeding from the site of fistula. Patient denied any chest pain. Hospitalist Physical - Physical exam Narrative exam: Not in cardiopulmonary distress. The patient appeared well nourished and normally developed. Vital signs as documented. Head exam is unremarkable. No scleral icterus . Neck is without jugular venous distension, thyromegaly, or carotid bruits. Lungs are clear to auscultation. Cardiac exam reveals regular rate and Rhythm. First and second heart sounds normal. No murmurs, rubs or gallops. Abdominal exam reveals normal bowel sounds, no masses, no organomegaly and no aortic enlargement. Extremities are nonedematous and both femoral and pedal pulses are normal. RADIOLOGY PHYSICIAN: Alert and oriented 3. No focal weakness. - Constitutional Vitals: Temp Pulse Resp BP Pulse Ox 98.9 F 71 18 112/68 98 06/18/16 11:15 06/18/16 11:15 06/18/16 11:15 06/18/16 11:15 06/18/16 10:00 General appearance: Present: no acute distress Results - Labs CBC & Chem 7: 06/18/16 05:36 06/18/16 05:36 Labs: Laboratory Last Values WBC 10.8 K/mm3 (4.5-11.0) 06/18/16 05:36 RBC 2.53 M/mm3 (3.65-5.03) L 06/18/16 05:36 Hgb 8.2 gm/dl (10.1-14.3) L 06/18/16 05:36 Hct 24.3 % (30.3-42.9) L 06/18/16 05:36 MCV 96 fl (79-97) 06/18/16 05:36 MCH 32 pg (28-32) 06/18/16 05:36 MCHC 34 % (30-34) 06/18/16 05:36 RDW 16.3 % (13.2-15.2) H 06/18/16 05:36 Plt Count 166 K/mm3 (140-440) 06/18/16 05:36 Lymph % (Auto) 18.5 % (13.4-35.0) 06/18/16 05:36 [place] % (Auto) 14.2 % (0.0-7.3) H 06/18/16 05:36 Eos % (Auto) 11.0 % (0.0-4.3) H 06/18/16 05:36 Baso % (Auto) 0.8 % (0.0-1.8) 06/18/16 05:36 Lymph # 2.0 K/mm3 (1.2-5.4) 06/18/16 05:36 [place] # 1.5 K/mm3 (0.0-0.8) H 06/18/16 05:36 Eos # 1.2 K/mm3 (0.0-0.4) H 06/18/16 05:36 Baso # 0.1 K/mm3 (0.0-0.1) 06/18/16 05:36 Add Manual Diff Complete 06/13/16 11:53 Total Counted 100 06/13/16 11:53 Seg Neutrophils % 55.5 % (40.0-70.0) 06/18/16 05:36 Seg Neuts % (Manual) 88.0 % (40.0-70.0) H 06/13/16 11:53 Band Neutrophils % 0 % 06/13/16 11:53 Lymphocytes % (Manual) 4.0 % (13.4-35.0) L 06/13/16 11:53 Reactive Lymphs % (Man) 0 % 06/13/16 11:53 Monocytes % (Manual) 7.0 % (0.0-7.3) 06/13/16 11:53 Eosinophils % (Manual) 1.0 % (0.0-4.3) 06/13/16 11:53 Basophils % (Manual) 0 % (0.0-1.8) 06/13/16 11:53 Metamyelocytes % 0 % 06/13/16 11:53 Myelocytes % 0 % 06/13/16 11:53 Promyelocytes % 0 % 06/13/16 11:53 Blast Cells % 0 % 06/13/16 11:53 Nucleated RBC % Not Reportable 06/13/16 11:53 Seg Neutrophils # 6.0 K/mm3 (1.8-7.7) 06/18/16 05:36 Seg Neutrophils # Man 17.8 K/mm3 (1.8-7.7) H 06/13/16 11:53 Band Neutrophils # 0.0 K/mm3 06/13/16 11:53 Lymphocytes # (Manual) 0.8 K/mm3 (1.2-5.4) L 06/13/16 11:53 Abs React Lymphs (Man) 0.0 K/mm3 06/13/16 11:53 Monocytes # (Manual) 1.4 K/mm3 (0.0-0.8) H 06/13/16 11:53 Eosinophils # (Manual) 0.2 K/mm3 (0.0-0.4) 06/13/16 11:53 Basophils # (Manual) 0.0 K/mm3 (0.0-0.1) 06/13/16 11:53 Metamyelocytes # 0.0 K/mm3 06/13/16 11:53 Myelocytes # 0.0 K/mm3 06/13/16 11:53 Promyelocytes # 0.0 K/mm3 06/13/16 11:53 Blast Cells # 0.0 K/mm3 06/13/16 11:53 WBC Morphology Not Reportable 06/13/16 11:53 Hypersegmented Neuts Not Reportable 06/13/16 11:53 Hyposegmented Neuts Not Reportable 06/13/16 11:53 Hypogranular Neuts Not Reportable 06/13/16 11:53 Smudge Cells Not Reportable 06/13/16 11:53 Toxic Granulation Not Reportable 06/13/16 11:53 Toxic Vacuolation Not Reportable 06/13/16 11:53 Dohle Bodies Not Reportable 06/13/16 11:53 Pelger-Huet Anomaly Not Reportable 06/13/16 11:53 Yessy Rods Not Reportable 06/13/16 11:53 Platelet Estimate Appears normal 06/13/16 11:53 Clumped Platelets Not Reportable 06/13/16 11:53 Plt Clumps, EDTA Not Reportable 06/13/16 11:53 Large Platelets Not Reportable 06/13/16 11:53 Giant Platelets Not Reportable 06/13/16 11:53 Platelet Satelliting Not Reportable 06/13/16 11:53 Plt Morphology Comment Not Reportable 06/13/16 11:53 RBC Morphology Not Reportable 06/13/16 11:53 Dimorphic RBCs Not Reportable 06/13/16 11:53 Polychromasia Not Reportable 06/13/16 11:53 Hypochromasia Not Reportable 06/13/16 11:53 Poikilocytosis Not Reportable 06/13/16 11:53 Anisocytosis 1+ 06/13/16 11:53 Microcytosis Not Reportable 06/13/16 11:53 Macrocytosis Not Reportable 06/13/16 11:53 Spherocytes Not Reportable 06/13/16 11:53 Pappenheimer Bodies Not Reportable 06/13/16 11:53 Sickle Cells Not Reportable 06/13/16 11:53 Target Cells Not Reportable 06/13/16 11:53 Tear Drop Cells Not Reportable 06/13/16 11:53 Ovalocytes Not Reportable 06/13/16 11:53 Helmet Cells Not Reportable 06/13/16 11:53 Yi-Candelaria Bodies Not Reportable 06/13/16 11:53 [place] Rings Not Reportable 06/13/16 11:53 [place] Cells Not Reportable 06/13/16 11:53 Bite Cells Not Reportable 06/13/16 11:53 Crenated Cell Not Reportable 06/13/16 11:53 Elliptocytes Few 06/13/16 11:53 Acanthocytes (Spur) Not Reportable 06/13/16 11:53 Rouleaux Not Reportable 06/13/16 11:53 Hemoglobin C Crystals Not Reportable 06/13/16 11:53 Schistocytes Not Reportable 06/13/16 11:53 Malaria parasites Not Reportable 06/13/16 11:53 Temo Bodies Not Reportable 06/13/16 11:53 Hem Pathologist Commnt No 06/13/16 11:53 PT 15.5 Sec. (12.2-14.9) H 06/13/16 08:36 INR 1.24 (0.87-1.13) H 06/13/16 08:36 APTT 29.7 Sec. (24.2-36.6) 06/13/16 08:36 Sodium 143 mmol/L (137-145) 06/18/16 05:36 Potassium 4.3 mmol/L (3.6-5.0) 06/18/16 05:36 Chloride 102.0 mmol/L (98-107) 06/18/16 05:36 Carbon Dioxide 28 mmol/L (22-30) 06/18/16 05:36 Anion Gap 17 mmol/L 06/18/16 05:36 BUN 30 mg/dL (7-17) H 06/18/16 05:36 Creatinine 8.0 mg/dL (0.7-1.2) H 06/18/16 05:36 Estimated GFR 6 ml/min 06/18/16 05:36 BUN/Creatinine Ratio 3.75 % 06/18/16 05:36 Glucose 88 mg/dL (65-100) 06/18/16 05:36 POC Glucose 117 (70-105) H 06/17/16 21:39 Calcium 8.0 mg/dL (8.4-10.2) L 06/18/16 05:36 Total Bilirubin 0.4 mg/dL (0.1-1.2) 06/13/16 08:36 AST 12 units/L (5-40) 06/13/16 08:36 ALT 8 units/L (7-56) 06/13/16 08:36 Alkaline Phosphatase 60 units/L (35-129) 06/13/16 08:36 Total Protein 5.5 g/dL (6.3-8.2) L 06/13/16 08:36 Albumin 2.8 g/dL (3.9-5) L 06/13/16 08:36 Albumin/Globulin Ratio 1.0 % 06/13/16 08:36 Blood Type A POSITIVE 06/13/16 13:32 Antibody Screen Negative 06/13/16 13:32 Crossmatch See Detail 06/13/16 13:32
--- NOTE | 2016-06-18 16:52 | Progress Note ---
Assessment and Plan Patient status post permacath placement. Her AV graft appears to have thrombosed. She will follow up as an outpatient for creation of a left upper extremity access. The risks benefits and alternatives were discussed in detail. She understands and agrees to proceed. She will call to make the appointment. All questions were asked and answered from the patient as well as her son at the bedside. - Patient Problems (1) Hemodialysis graft malfunction Current Visit: Yes Status: Acute Qualifiers: Encounter type: E (2) Leukocytosis Current Visit: Yes Status: Acute Qualifiers: Leukocytosis type: L (3) End-stage renal disease on hemodialysis Current Visit: Yes Status: Acute (4) Hypertension Current Visit: Yes Status: Acute Qualifiers: Hypertension type: H (5) Hyperlipidemia Current Visit: Yes Status: Acute Qualifiers: Hyperlipidemia type: H Subjective Date of service: 06/18/16 Principal diagnosis: esrd Interval history: Patient is awake and alert. She is without complaint at present. Objective - Constitutional Vitals: Vital Signs - 12hr 06/18/16 06/18/16 06/18/16 05:40 10:00 11:00 Temperature 98.4 F Pulse Rate 74 Pulse Rate [ 72 74 Right Radial] Respiratory 18 Rate Blood Pressure 107/71 [Left Arm] O2 Sat by Pulse 98 Oximetry 06/18/16 11:15 Temperature 98.9 F Pulse Rate Pulse Rate [ 71 Right Radial] Respiratory 18 Rate Blood Pressure 112/68 [Left Arm] O2 Sat by Pulse Oximetry General appearance: Present: no acute distress - EENT Eyes: EOM intact ENT: hearing intact - Neck Neck: supple (right internal jugular vein permacath) - Respiratory Respiratory effort: normal (unlabored at rest on room air) Extremities: abnormal (right upper extremity AV graft appears thrombosed, unable to palpate thrill) - Neurologic Neurologic: no focal deficits - Psychiatric Psychiatric: appropriate mood/affect, intact judgment & insight, cooperative - Labs CBC & Chem 7: 06/18/16 05:36 06/18/16 05:36 Labs: Abnormal lab results 06/17/16 06/18/16 06/18/16 Range/Units 21:39 05:36 05:36 RBC 2.53 L (3.65-5.03) M/mm3 Hgb 8.2 L (10.1-14.3) gm/dl Hct 24.3 L (30.3-42.9) % RDW 16.3 H (13.2-15.2) % [place] % (Auto) 14.2 H (0.0-7.3) % Eos % (Auto) 11.0 H (0.0-4.3) % [place] # 1.5 H (0.0-0.8) K/mm3 Eos # 1.2 H (0.0-0.4) K/mm3 BUN 30 H (7-17) mg/dL Creatinine 8.0 H (0.7-1.2) mg/dL POC Glucose 117 H (70-105) Calcium 8.0 L (8.4-10.2) mg/dL
--- NOTE | 2016-06-18 16:57 | Discharge Summary ---
Providers - Providers Date of Admission: 06/13/16 11:38 Date of discharge: 06/18/16 Attending physician: ANIKA VENEGAS MD 06/13/16 14:07 Consult to Physician [CONS] Stat Consulting Provider: EDIS SALEEM Reason For Exam: ESRD Place consult to:: dr saleem Notified:: yes Was contact made?: Yes If yes, spoke with:: office olvin Time called:: 14:15 06/13/16 22:18 Consult to Physician [CONS] Routine Consulting Provider: NAT RUSSO Reason For Exam: Punctured fistula Place consult to:: vascular Notified:: office Phone number called:: [phone] Was contact made?: Yes If yes, spoke with:: bonnie Time called:: 09:31 Primary care 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 She last received hemodialysis on a day before presentation. She had prolonged bleeding after dialysis but it was able to be controlled. She developed bleeding from her AV access earlier on the day of presentation, and was sent to the emergency room where she has since been admitted. Her AV graft was [place] several years ago [place] She had a fistulogram and angioplasty approximately 3 months ago, and was scheduled to have an intervention last week. This apparently did not get scheduled through her clinic, therefore she has not been evaluated. Patient was admitted to the floor and she has leukocytosis, blood culture was negative, patient is anuric and and no U/A was done. patient was empirically treated with antibiotics that resolved the leukocytosis. Vascular surgery was consulted and input appreciated they put Perm cath and scheduled her to see as an O/P for evaluation of fistula formation. They don't think the fistula she has now is salvageable. Nephrology was consulted and dialyzed her. Patient was anemic and was transfused iith 2 units of blood. Patient was stable at the time of discharge with the advise to keep the scheduled appointments. Disposition: DISCHARGED TO HOME OR SELFCARE Time spent for discharge: 31 minutes - Discharge Diagnoses (1) Anemia Status: Acute Qualifiers: Anemia type: other cause Iron deficiency anemia type: I Vitamin B12 deficiency anemia type: V Folate deficiency anemia type: F Bone marrow failure anemia type: B Hemolytic anemia type: H Other causes of anemia: chronic disease, kidney Qualified Code(s): N18.9 - Chronic kidney disease, unspecified; D63.1 - Anemia in chronic kidney disease (2) End-stage renal disease on hemodialysis Status: Acute (3) Hemodialysis graft malfunction Status: Acute Qualifiers: Encounter type: E (4) Leukocytosis Status: Acute Qualifiers: Leukocytosis type: L Core Measure Documentation - Palliative Care Palliative Care/ Comfort Measures: Not Applicable - Core Measures Any of the following diagnoses?: none Exam - Physical Exam Narrative exam: Not in cardiopulmonary distress. The patient appeared well nourished and normally developed. Vital signs as documented. Head exam is unremarkable. No scleral icterus . Neck is without jugular venous distension, thyromegaly, or carotid bruits. Lungs are clear to auscultation. Cardiac exam reveals regular rate and Rhythm. First and second heart sounds normal. No murmurs, rubs or gallops. Abdominal exam reveals normal bowel sounds, no masses, no organomegaly and no aortic enlargement. Extremities are nonedematous and both femoral and pedal pulses are normal. PILLOWCASE FOLDER: Alert and oriented 3. No focal weakness. - Constitutional Vitals: Temp Pulse Resp BP Pulse Ox 98.9 F 71 18 112/68 98 06/18/16 11:15 06/18/16 11:15 06/18/16 11:15 06/18/16 11:15 06/18/16 10:00 Plan Activity: no restrictions Weight Bearing Status: Full Weight Bearing Diet: renal Follow up with: SHIRA CELIS MD [Primary Care Provider] - [facility]Provider Group] - 7 Days
[2016-06-18] MEDS ORDERED: NACL 0.9 (PRIMING MACHINE ONLY DIALYSIS) MC ONE (21:11)
[2016-06-18] MEDS: HEPARIN IV PRN (22:41)
[2016-06-18 23:00] VITALS: BP 117/83
[2016-06-18] MEDS: ZOCOR PO SCH (23:35)
--- NOTE | 2016-06-19 07:58 | Vascular Lab Report ---
Upper extremity vein mapping Reason for exam: Preoperative evaluation for hemodialysis access Comments: On the right, the cephalic vein is not usable from wrist to shoulder due to small size. The basilic vein is not usable from wrist to shoulder due to small size. The brachial and radial arteries are patent. The radial artery is small. On the left, the cephalic vein is not usable from wrist to shoulder due to small size. The basilic vein is not usable from wrist to shoulder due to small size. The brachial and radial arteries are patent. The radial artery is small. Impression: Both cephalic veins are not suitable for use as AV access sites. Both basilic veins are not suitable for use as AV access sites. Bilateral radial arteries are small.
== END 2016-06-19 00:05 | disposition home health service (06) | DRG 252 ==
LOC: ED 08:09 → 4A 11:38
PROVIDERS: ADMIT Internal Medicine; ATTEND Internal Medicine
PROC: 30233N1 Transfusion of Nonautologous Red Blood Cells into Peripheral Vein, Percutaneous Approach (ICD-10-PCS; 2016-06-13)
PROC: 5A1D60Z (ICD-10-PCS; 2016-06-13)
PROC: 02H633Z Insertion of Infusion Device into Right Atrium, Percutaneous Approach (ICD-10-PCS; principal; 2016-06-14)
PROC: B5181ZZ Fluoroscopy of Superior Vena Cava using Low Osmolar Contrast (ICD-10-PCS; 2016-06-14)
PROC: B51M1ZZ Fluoroscopy of Right Upper Extremity Veins using Low Osmolar Contrast (ICD-10-PCS; 2016-06-14)
PROC: 05PY33Z Removal of Infusion Device from Upper Vein, Percutaneous Approach (ICD-10-PCS; 2016-06-18)
PROC: 02H633Z Insertion of Infusion Device into Right Atrium, Percutaneous Approach (ICD-10-PCS; 2016-06-18)
DX: T82.838A Hemorrhage due to vascular prosthetic devices, implants and grafts, initial encounter (principal); N18.6 End stage renal disease; I12.0 Hypertensive chronic kidney disease with stage 5 chronic kidney disease or end stage renal disease; T82.868A Thrombosis due to vascular prosthetic devices, implants and grafts, initial encounter; D72.829 Elevated white blood cell count, unspecified; E78.5 Hyperlipidemia, unspecified; Z96.643 Presence of artificial hip joint, bilateral; D63.1 Anemia in chronic kidney disease; Z87.891 Personal history of nicotine dependence
CPT/HCPCS: 36415; 36556; 36558; 75827; 76937; 77001; 80048; 80053; 82962; 85007; 85025; 85610; 85730; 86850; 86900; 86901; 86920; 87040; 93005; 93010; 94760; 96360; C1750; C1751; C1752; C1769; C1894; J0690; J0696; J1644; J2250; J3010; J7030; J7040; J7050; P9016; Q9967

== ENCOUNTER 2016-10-25 06:22 | Day surgery (SDC) | payer MEDICAID ==
[~2016-10-25 06:22] MED LIST changes: +ANCEF/STERILE WATER 2 GM/20 ML 2 GM/20 ML SYRINGE IV NR; +NACL 0.9% 1000 ML 1,000 ML IV SCH; -NACL 0.9% 500 ML 500 ML ONE
[2016-10-25] MEDS ORDERED: PAPAVERINE ONE (07:12)
[2016-10-25] MEDS ORDERED: PROTAMINE SULFATE ONE (07:12)
[2016-10-25] MEDS ORDERED: NACL ONE (07:13)
[2016-10-25] MEDS ORDERED: HEPARIN 10,000 UNITS/10 ML ONE ×3 (07:13→08:35)
[2016-10-25] MEDS ORDERED: THROMBIN (BOVINE) TP ONE ×2 (07:13→09:24)
[2016-10-25] MEDS ORDERED: GELFOAM TP ONE ×2 (07:13→09:24)
[2016-10-25] MEDS ORDERED: MARCAINE-EPI/PF 0.5%-1:200,000 INFILTRATI ONE ×2 (07:13→09:25)
[2016-10-25] MEDS ORDERED: NACL 0.9% 500 ML 500 ML ONE (07:13)
[2016-10-25] MEDS ORDERED: RIFADIN ONE (07:14)
[2016-10-25] MEDS ORDERED: DIPRIVAN 10 MG/ML IV ONE (07:21)
[2016-10-25] MEDS ORDERED: SUBLIMAZE ONE (07:21)
[2016-10-25] MEDS ORDERED: XYLOCAINE MPF 2% ONE (07:23)
[2016-10-25] MEDS ORDERED: NACL 0.9% 100 ML ONE (07:26)
[2016-10-25] MEDS ORDERED: NEO SYNEPHRINE ONE (07:27)
--- NOTE | 2016-10-25 07:30 | Anesthesia Day of Surgery ---
Anesthesia Day of Surgery - Day of Surgery Patient Examined: Yes Patient H&P Reviewed: Yes Patient is NPO: Yes
--- NOTE | 2016-10-25 07:30 | Anesthesia Consultation ---
Anesthesia Consult and Med Hx Date of service: 10/25/16 - Airway Anesthetic Teeth Evaluation: Poor (LOOSE BOTTOM FRONT TOOTH) ROM Head & Neck: Adequate Mental/Hyoid Distance: Adequate Mallampati Class: Class II Intubation Access Assessment: Probably Good - Pulmonary Exam CTA: Yes - Cardiac Exam Cardiac Exam: RRR - Pre-Operative Health Status ASA Pre-Surgery Classification: ASA3 Proposed Anesthetic Plan: General - Pulmonary Hx Smoking: Yes (CIGARETTES 1 PPW X 10 YRS, QUIT 35 YRS AGO) Hx Asthma: No COPD: No Hx Sleep Apnea: No - Cardiovascular System Hx Hypertension: Yes (FOR 20+ YRS, OFF MEDS FOR 3 YRS) - Central Nervous System Hx Seizures: No CVA: No - Gastrointestinal Hx Gastroesophageal Reflux Disease: Yes - Endocrine Hx Renal Disease: Yes (HD X 7 YRS, LAST DIALYSIS YESTERDAY) Hx End Stage Renal Disease: Yes (RIGHT PERMACATH, NON FUCTIONING RIGHT FISTULA) Hx Liver Disease: No Hx Insulin Dependent Diabetes: No Hx Thyroid Disease: No (S/P PARATHYROIDEXTOMY) - Hematic Hx Anemia: Yes - Other Systems Hx Cancer: No Hx Obesity: Yes - Additional Comments Anesthesia Medical History Comments: PONV
[2016-10-25] MEDS ORDERED: TRANSDERM-SCOP TD NR (08:00)
[2016-10-25] MEDS ORDERED: PEPCID PO NR (08:00)
[2016-10-25] MEDS ORDERED: VERSED IV NR (08:00)
[2016-10-25] MEDS ORDERED: REGLAN PO NR (08:00)
[2016-10-25] MEDS ORDERED: ZOFRAN IV PRN (08:00)
[2016-10-25] MEDS ORDERED: DILAUDID IV PRN (08:00)
[2016-10-25 08:14] LABS: Hematocrit 43.9 % (30.3-42.9); Hemoglobin 14.3 gm/dl (10.1-14.3); Mean Corpuscular HGB Conc 33 % (30-34); Mean Corpuscular Hemoglobin 32 pg (28-32); Mean Corpuscular Volume 99 fl (79-97); Platelet Count 166 K/mm3 (140-440); Red Blood Count 4.46 M/mm3 (3.65-5.03); Red Cell Distribution Width 17.8 % (13.2-15.2); White Blood Count 8.2 K/mm3 (4.5-11.0)
[2016-10-25 08:54] LABS: Basophils % (Auto) 0.9 % (0.0-1.8)
[2016-10-25 09:00] LABS: BUN/Creatinine Ratio 4.24; Calcium 9.1 mg/dL (8.4-10.2); Chloride 97.5 mmol/L (98-107); Potassium 3.7 mmol/L (3.6-5.0)
[2016-10-25] MEDS ORDERED: HEPARIN 10,000 UNITS/10 ML IV ONE (09:23)
[2016-10-25] MEDS ORDERED: NACL 0.9% IR ONE (09:24)
[2016-10-25] MEDS ORDERED: ePHEDrine SULFATE ONE (09:33)
--- NOTE | 2016-10-25 10:23 | Short Stay Summary ---
Short Stay Documentation Date of service: 10/25/16 - History H&P: obtained from office - Allergies and Medications Current Medications: Allergies No Known Allergies Allergy (Verified 06/13/16 08:20) Home Medications Medication Instructions Recorded Confirmed Last Taken Type Calcium Carbonate/Vitamin D3 1 each PO DAILY 06/13/16 10/19/16 Unknown History [[place] 500-Vit D3 600 Caplet] Famotidine [Pepcid] 20 mg PO DAILY 06/13/16 10/19/16 Unknown History Simvastatin [Zocor TAB] 20 mg PO QHS 06/13/16 10/19/16 Unknown History Vit B Cmplx 3/FA/Vit C/Biotin 1 each PO DAILY 06/13/16 10/19/16 Unknown History [Shaniqua-Rachael Rx Tablet] Active Medications Hydromorphone HCl (Dilaudid) 0.5 mg IV Q10MIN PRN PRN Reason: Pain , Severe (7-10) Stop: 10/25/16 14:00 Cefazolin Sodium (Ancef/Sterile Water 2 Gm/20 Ml) 2 gm in 20 mls @ 80 mls/hr IV PREOP NR PRN Reason: Protocol Stop: 10/25/16 23:59 Sodium Chloride (Nacl 0.9% 1000 Ml) 1,000 mls @ 42 mls/hr IV DIRECT ISRAEL Last Admin: 10/25/16 07:50 Dose: 42 mls/hr Metoclopramide HCl (Reglan) 10 mg PO PREOP NR Stop: 10/25/16 21:00 Last Admin: 10/25/16 08:12 Dose: 10 mg Midazolam HCl (Versed) 2 mg IV PREOP NR Stop: 10/25/16 21:00 Last Admin: 10/25/16 08:12 Dose: 2 mg Ondansetron HCl (Zofran) 4 mg IV ONCE PRN PRN Reason: Nausea And Vomiting Stop: 10/25/16 21:00 Scopolamine (Transderm-Scop) 1 each TD PREOP NR Stop: 10/25/16 21:00 Last Admin: 10/25/16 08:12 Dose: 1 each - Brief post op/procedure progress note Date of procedure: 10/25/16 Pre-op diagnosis: end-stage renal disease Post-op diagnosis: same Procedure: Left upper extremity brachial artery to axillary vein bridge graft using 7 mm bovine graft Anesthesia: MAC, local Findings: Excellent thrill and AV graft and 2+ left radial pulse at end of procedure Surgeon: LILIANE BEDOYA Estimated blood loss: 50-100ml Pathology: none Condition: stable - Hospital course Hospital course: Benign - Disposition Condition at discharge: Stable Disposition: DC-01 TO HOME OR SELFCARE Short Stay Discharge Plan Activity: advance as tolerated Diet: advance as tolerated Wound: per your surgeon's advice Follow up with: LILIANE BEDOYA MD [Staff Physician] - 14 Days Prescriptions: HYDROcodone/APAP 5-325 [[place] 5/325] 1 each PO Q4HR PRN #30 tablet PRN Reason: Pain
--- NOTE | 2016-10-25 10:24 | Operative Report ---
Operative Report Operative Report: Date of procedure: 04/27/2016 Pre-operative diagnosis: End-stage renal failure Post-operative diagnosis: Same Procedure name(s): Left upper extremity brachial artery to axillary vein bridge graft using 7 mm bovine graft Surgeon: Mariano López MD Hand Spring Repairer Helper: None Anesthesia: Local MAC EBL: Less than 50 mL Operative indication: Patient is a 61-year-old woman with end-stage renal failure and need for long-term hemodialysis access. Findings: Excellent thrill in the arteriovenous graft at the end of the procedure. And 2+ left radial pulse. Procedure: The patient was placed on the table in the supine position. The arm was prepped with ChloraPrep solution and draped in the usual sterile fashion. Under local anesthesia, an incision was made just above the elbow. Dissection was carried out to identify the brachial artery. The brachial artery was surrounded with Vesseloops proximally and distally. The brachial artery was approximately 5 mm in diameter. A second incision was made in the axilla and dissection was carried out to identify the axillary vein. This vein was also at least 7 mm in diameter. Vessel loops were placed proximally and distally. I should note that the wounds were infiltrated with half percent Marcaine and epinephrine prior to incision. The bovine graft was prepped according to the IFU. A tunnel was created in the upper arm between the 2 incisions using a Marga-Wick tunneler. The graft was anastomosed to the axillary vein in an end to side fashion using running 6-0 Prolene. The arterial anastomosis was completed in an end-to-side fashion. The arteriotomy was approximate 5 mm in length. A Awais catheter was used to break the spasm in the brachial artery proximally and distally to the anastomosis. The anastomosis is completed and flow was started into the arteriovenous graft with the development of an immediate and excellent thrill along the body of the graft. The left radial pulse remained palpable. Meticulous hemostasis was obtained. Closure was done with 3-0 Vicryl on the subcutaneous tissues tissue and 4-0 PDS on the subcuticular tissue. Sterile dressings were applied. The patient tolerated the procedure well. There was an easily palpable left radial pulse at the end of the procedure. There was a good thrill in the graft at the end of the procedure. Sponge, needle, and instrument counts were reported as correct. The patient was taken from the operating room to the recovery room in stable condition.
[2016-10-25] MEDS ORDERED: NORMODYNE IV ONE ×2 (10:28→11:14)
[2016-10-25 10:32] LABS: Basophils % (Manual) 0 % (0.0-1.8); Blastocytes % (Manual) 0 %
[2016-10-25 10:33] LABS: Anisocytosis 1+; Diff Status Complete
--- NOTE | 2016-10-25 11:50 | Post Anesthesia Evaluation ---
- Post Anesthesia Evaluation Patient Participated: Yes Airway Patent: Yes Stable Respiratory Function: Yes Nausea/Vomiting: No Temp > 96.8F: Yes Pain Manageable: Yes Adequeate Hydration: Yes Anesthesia Complications: No Block Receding Appropriately: Not Applicable Patient on Ventilator: No
[2016-10-25 12:22] VITALS: BP 148/69
== END 2016-10-25 06:23 | disposition home or self-care (01) ==
LOC: OR 06:22
PROVIDERS: ATTEND Surgery Vascular Surgery
DX: I12.0 Hypertensive chronic kidney disease with stage 5 chronic kidney disease or end stage renal disease (principal); N18.6 End stage renal disease; D64.9 Anemia, unspecified; K21.9 Gastro-esophageal reflux disease without esophagitis; E78.00 Pure hypercholesterolemia, unspecified; E66.9 Obesity, unspecified; Z68.34 Body mass index [BMI] 34.0-34.9, adult; Z99.2 Dependence on renal dialysis; Z79.899 Other long term (current) drug therapy; Z83.3 Family history of diabetes mellitus; Z87.891 Personal history of nicotine dependence; Z98.890 Other specified postprocedural states
CPT/HCPCS: 36415; 36830; 80048; 85007; 85025; A4649; C1757; C1768; J0690; J1644; J2250; J2370; J2704; J3010; J3490; J7030; J7040; J2440; J2720

== ENCOUNTER 2021-03-29 14:10 | Day surgery (SDC) | payer MEDICAID ==
[2021-03-29] MEDS ORDERED: fentaNYL 100 MCG/2 ML INJ ONE (14:47)
[2021-03-29] MEDS ORDERED: MIDAZOLAM 2 MG/2 ML INJ ONE (14:47)
[2021-03-29] MEDS ORDERED: HEPARIN/NS 5000 UNIT/500ML 500 ML IR ONE (14:49)
[2021-03-29] MEDS ORDERED: LIDOCAINE (2%) 20 MG/1 ML VIAL 20 ML MDV INFILTRATI ONE (14:49)
[2021-03-29] MEDS ORDERED: ceFAZolin/Water 2 GM/20 ML 2 GM/20 ML SYRINGE IV ONE (14:50)
[2021-03-29] MEDS ORDERED: SODIUM CHLORIDE 0.9% 500 ML 500 ML ONE (15:05)
[2021-03-29] MEDS: HEPARIN 10,000 UNITS/10 ML VIAL ONE ×3 (15:35→15:44)
--- NOTE | 2021-03-29 15:42 | Short Stay Summary ---
Short Stay Documentation Date of service: 03/29/21 Narrative H&P: See H&P - History H&P: obtained from office - Allergies and Medications Current Medications: Allergies No Known Allergies Allergy (Verified 09/20/17 13:16) Home Medications Medication Instructions Recorded Confirmed Last Taken Type Calcium Carbonate/Vitamin D3 1 each PO DAILY 06/13/16 03/29/21 03/28/21 History [[place] 500-Vit D3 600 Caplet] 1 tab Famotidine [Pepcid] 20 mg PO DAILY 06/13/16 03/29/21 03/29/21 History 20 mg Simvastatin (Nf) [Zocor TAB] 20 mg PO QHS 06/13/16 03/29/21 03/28/21 History 20 mg Vit B Comp No.3/Folic/C/Biotin 1 each PO BID 06/13/16 03/29/21 03/28/21 History [Shaniqua-Rachael Rx Tablet] 1 tab Calcium Carbonate [Tums 500MG CHEW] 1 tab PO 4XW 03/29/21 03/29/21 03/28/21 History 1 tab bisacodyL [Dulcolax tab] 1 tab PO 3XW 03/29/21 03/29/21 03/27/21 History 1 tab - Brief post op/procedure progress note Date of procedure: 03/29/21 Pre-op diagnosis: Complications of Dialysis Access Post-op diagnosis: same Procedure: 1. Ultrasound-Guided Access for Internal Jugular Vein 2. Placement of 23 cm Bard Glidepath Permacath 3. Radiologic Supervision with Interpretation 4. Monitored Moderate Sedation (Total Anesthesia Time: 17 Minutes) Anesthesia: local, other (Monitored Moderate Sedation) Surgeon: SANTI RECIO Estimated blood loss: minimal Pathology: none Condition: stable - Disposition Condition at discharge: Good Disposition: 01 HOME / SELF CARE / HOMELESS Short Stay Discharge Plan Wound: keep clean and dry, other (Do not shower or get the permacath wet)
--- NOTE | 2021-03-29 15:46 | Operative Report ---
Operative Report Operative Report: Date of procedure: 03/29/2021 Pre-operative diagnosis: Acute on Chronic Renal Failure Post-operative diagnosis: Same Procedure(s): 1. Ultrasound-Guided Access Right Internal Vein 2. Placement of 23 cm GlidePath Permacath 3. Radiologic Supervision with Interpretation 4. Monitored Moderate Sedation (Total Anesthesia Time: 17 Minutes) Surgeon: Parker Aquino MD Anesthesiologist: None Anesthesia: Local/Monitored Moderate Sedation Total Anesthesia Time: 17 Minutes EBL: Minimal Counts: Correct Complications: None Condition: Stable Findings: Successful placement of right IJ permacath with the distal tip in the right atrium and no evidence of pneumothorax at the completion of the case. Specimen: None Indication: The patient is a 66-year-old female with history of end-stage renal disease who is on hemodialysis through left arm arteriovenous graft. The graft was failing and there was a plan to create a new arteriovenous graft however the graft thrombosed today prior to dialysis. She is in need of a new graft however she will require placement of a permacath until she has creation of the graft and is able to be used. She was given the risk, benefits, and alternative procedures and consented to the procedure. Description of Procedure: The patient was brought to the assistant laboratory director and laid in supine position and the right neck and chest were prepped and draped in normal sterile fashion. Ultrasound was used to identify the right internal jugular vein and the overlying skin and soft tissue was anesthetized with lidocaine. An 11 blade was used to make a small stab incision and a 21-gauge micropuncture needle was used with ultrasound guidance to enter the right internal jugular vein. A 0.018 micropuncture wire was advanced into the inferior vena cava under fluoroscopy and after removing the needle the micropuncture sheath was advanced into the internal jugular vein by Seldinger technique. The wire and inner cannula were removed and a 0.035 J-wire was advanced into the inferior vena cava under direct fluoroscopic visualization. The tract was serially dilated up to a 16 [place]ian peel-away safety sheath. An exit site on the chest was then chosen and the presumed tunnel was anesthetized with lidocaine. A small stab incision was made on the chest and then the permacath was connected to the tunneler and pulled antegrade through the tunnel. The J-wire and inner cannula were remove from the SafeSheath and the catheter was inserted into the safe sheath. The safe sheath was then peeled away while advancing the catheter. The catheter was positioned under fluoroscopy with the distal tip in the right atrium. Once in adequate position, both ports were aspirated, flushed, and primed with the appropriate amount of heparin. The neck incision was then closed with 4-0 Monocryl in interrupted subcuticular fashion and dressed with Dermabond. The permacath was secured in place with a 2-0 Ethilon in interrupted fashion and dressed with a sterile dressing. Final fluoroscopy demonstrated the catheter was in adequate position with the distal tip in the right atrium and no evidence of pneumothorax. The patient tolerated the procedure well. All sponge, needle, and instrument counts were correct. The patient was taken to recovery in stable condition.
[2021-03-29 16:16] VITALS: BP 102/74
== END 2021-03-29 16:43 | disposition home or self-care (01) ==
LOC: CATHLABREC 14:10
PROVIDERS: ATTEND Surgery Vascular Surgery
DX: N18.6 End stage renal disease (principal); E78.00 Pure hypercholesterolemia, unspecified; Z99.2 Dependence on renal dialysis; Z87.891 Personal history of nicotine dependence; Z79.899 Other long term (current) drug therapy; Z98.890 Other specified postprocedural states
CPT/HCPCS: 36558; 77001; 99156; C1750; J0690; J1644; J2250; J3010; J3490; J7040; 36561

== ENCOUNTER 2021-04-18 08:45 | Day surgery (SDC) | payer MEDICAID ==
[~2021-04-18 08:45] MED LIST changes: -ANCEF/STERILE WATER 2 GM/20 ML 2 GM/20 ML SYRINGE IV NR; -NACL 0.9% 1000 ML 1,000 ML IV SCH; +ceFAZolin/Water 2 GM/20 ML 2 GM/20 ML SYRINGE IV NR
[2021-04-18] MEDS ORDERED: SODIUM CHLORIDE 0.9% 1000 ML 1,000 ML ONE (09:01)
[2021-04-18 09:55] LABS: Mean Corpuscular HGB Conc 30 % (30-34); Mean Corpuscular Volume 103 fl (79-97); Platelet Count 336 K/mm3 (140-440); Red Blood Count 3.81 M/mm3 (3.65-5.03)
[2021-04-18 10:04] LABS: Hematocrit 39.1 % (30.3-42.9); Hemoglobin 11.8 gm/dl (10.1-14.3)
--- NOTE | 2021-04-18 10:08 | Anesthesia Day of Surgery ---
Anesthesia Day of Surgery - Day of Surgery Patient Examined: Yes Patient H&P Reviewed: Yes Patient is NPO: Yes
--- NOTE | 2021-04-18 10:09 | Anesthesia Consultation ---
Anesthesia Consult and Med Hx Date of service: 04/18/21 - Airway Anesthetic Teeth Evaluation: Edentulous ROM Head & Neck: Adequate Mental/Hyoid Distance: Adequate Mallampati Class: Class II Intubation Access Assessment: Good - Pre-Operative Health Status ASA Pre-Surgery Classification: ASA3 Nerve Block: SC; GA if needed - Pulmonary Hx Smoking: Yes (Former) Hx Asthma: No COPD: No Hx Sleep Apnea: No - Cardiovascular System Hx Hypertension: Yes (NO MEDS) - Central Nervous System Hx Seizures: No CVA: No Hx Psychiatric Problems: No - Gastrointestinal Hx Gastroesophageal Reflux Disease: Yes - Endocrine Hx Renal Disease: Yes (HD X 7 YRS, LAST DIALYSIS YESTERDAY) Hx End Stage Renal Disease: Yes Hx Liver Disease: No Hx Insulin Dependent Diabetes: No Hx Thyroid Disease: No (S/P PARATHYROIDECTOMY) - Hematic Hx Anemia: Yes - Other Systems Hx Cancer: No Hx Obesity: Yes - Additional Comments Anesthesia Medical History Comments: Not ambulatory; uses wheelchair
[2021-04-18 10:11] LABS: Calcium 8.3 mg/dL (8.4-10.2)
[2021-04-18] MEDS ORDERED: BUPIVACAINE/PF (0.5%) 5 MG/1 ML 30 ML VIAL INFILTRATI ONE (10:11)
[2021-04-18] MEDS ORDERED: SODIUM CHLORIDE 0.9% 1000 ML 1,000 ML IV SCH (10:30)
[2021-04-18] MEDS ORDERED: HYDROmorphone 1 MG/1 ML INJ IV PRN ×2 (10:30)
[2021-04-18] MEDS ORDERED: fentaNYL 100 MCG/2 ML INJ IV SCH (10:30)
[2021-04-18] MEDS ORDERED: ONDANSETRON 4 MG/2 ML INJ IV PRN (10:30)
[2021-04-18] MEDS: MIDAZOLAM 2 MG/2 ML INJ IV NR ×2 (10:47→10:54)
[2021-04-18] MEDS ORDERED: HEPARIN 10,000 UNITS/10 ML VIAL ONE (11:14)
[2021-04-18] MEDS ORDERED: rifAMPin 600 MG VIAL ONE (11:15)
[2021-04-18] MEDS ORDERED: SODIUM CHLORIDE 0.9% 250ML 250 ML ONE (11:15)
[2021-04-18] MEDS ORDERED: SODIUM CHLORIDE 0.9% 500 ML 500 ML ONE (11:15)
[2021-04-18] MEDS ORDERED: HYDROmorphone 1 MG/1 ML INJ ONE (11:16)
[2021-04-18] MEDS ORDERED: propofoL 200 MG/20 ML VIAL IV ONE ×2 (11:16→11:17)
[2021-04-18] MEDS ORDERED: LIDOCAINE MPF (2%) 20 MG/1 ML VIAL 5 ML ONE (11:17)
[2021-04-18] MEDS ORDERED: MIDAZOLAM 2 MG/2 ML INJ ONE (11:17)
[2021-04-18] MEDS ORDERED: ePHEDrine SULFATE 50 MG/1 ML INJ ONE (12:15)
[2021-04-18] MEDS ORDERED: HEPARIN 10,000 UNITS/10 ML VIAL IR ONE (12:19)
[2021-04-18] MEDS ORDERED: SODIUM CHLORIDE 0.9% 500 ML IVPB IRRIGATION ONE (12:20)
[2021-04-18] MEDS ORDERED: SODIUM CHLORIDE 0.9% 250 ML IVPB IR ONE (12:21)
[2021-04-18] MEDS ORDERED: rifAMPin 600 MG VIAL IV ONE (12:22)
[2021-04-18] MEDS ORDERED: SODIUM CHLORIDE 0.9% IRR 1,500 ML BOTTLE IR ONE (12:22)
[2021-04-18] MEDS ORDERED: ONDANSETRON 4 MG/2 ML INJ ONE (13:35)
--- NOTE | 2021-04-18 13:50 | Short Stay Summary ---
Short Stay Documentation Date of service: 04/18/21 Narrative H&P: See H&P - History H&P: obtained from office - Allergies and Medications Current Medications: Allergies No Known Allergies Allergy (Verified 09/20/17 13:16) Home Medications Medication Instructions Recorded Confirmed Last Taken Type Famotidine [Pepcid] 20 mg PO DAILY 06/13/16 04/18/21 04/18/21 06:00 History Simvastatin (Nf) [Zocor TAB] 20 mg PO QHS 06/13/16 04/18/21 04/17/21 20:00 History Vit B Comp No.3/Folic/C/Biotin 1 each PO BID 06/13/16 04/18/21 04/17/21 17:00 History [Shaniqua-Rachael Rx Tablet] bisacodyL [Dulcolax tab] 1 tab PO 3XW 03/29/21 04/13/21 03/27/21 History 1 tab Renvela 800 mg PO TIDAC 04/13/21 04/18/21 04/17/21 17:00 History Active Medications Fentanyl (Fentanyl 100 Mcg/2 Ml Inj) 100 mcg IV ONCE@1030 [place] Stop: 04/18/21 17:00 Last Admin: 04/18/21 10:47 Dose: 100 mcg Hydromorphone HCl (Hydromorphone 1 Mg/1 Ml Inj) 0.25 mg IV Q10MIN PRN PRN Reason: Pain, Moderate (4-6) Stop: 04/18/21 18:00 Hydromorphone HCl (Hydromorphone 1 Mg/1 Ml Inj) 0.5 mg IV Q10MIN PRN PRN Reason: Pain , Severe (7-10) Stop: 04/18/21 18:00 Cefazolin Sodium (Ancef/Sterile Water 2 Gm/20 Ml) 2 gm in 20 mls @ 80 mls/hr IV PREOP NR; Protocol Stop: 04/18/21 20:00 Sodium Chloride (Nacl 0.9% 1000 Ml) 1,000 mls @ 42 mls/hr IV DIRECT [place] Last Admin: 04/18/21 10:40 Dose: 42 mls/hr Midazolam HCl (Midazolam 2 Mg/2 Ml Inj) 2 mg IV PREOP NR Stop: 04/18/21 23:59 Last Admin: 04/18/21 10:54 Dose: 2 mg Ondansetron HCl (Ondansetron 4 Mg/2 Ml Inj) 4 mg IV ONCE PRN PRN Reason: Nausea And Vomiting Stop: 04/18/21 18:00 - Brief post op/procedure progress note Date of procedure: 04/18/21 Pre-op diagnosis: Complications of Dialysis Access Post-op diagnosis: same Procedure: 1. Creation of Left Brachial Artery to Left Axillary Vein Arteriovenous Graft with 6 mm Bovine Artegraft 2. Open Thrombectomy of Left Axillary Vein with 6 Awais Anesthesia: MAC, regional Surgeon: SANTI RECIO Estimated blood loss: 50-100ml Pathology: list (Left axillary vein thrombus) Specimen disposition: discarded Condition: stable - Disposition Condition at discharge: Good Disposition: 01 HOME / SELF CARE / HOMELESS Short Stay Discharge Plan Activity: other (No heavy lifting with left arm for 2 weeks.) Wound: open to air, keep clean and dry, other (Okay to wash the left arm wounds with soap and water but do not soak in water for 2 weeks.) Follow up with: SANTI RECIO MD [Staff Physician] - 14 Days Prescriptions: HYDROcodone/APAP 7.5-325 [[place] 7.5/325] 1 each PO Q6HR PRN #40 tablet PRN Reason: Pain
--- NOTE | 2021-04-18 13:57 | Operative Report ---
Operative Report Operative Report: Date of procedure: 04/18/2021 Pre-operative diagnosis: Complications of Dialysis Access Post-operative diagnosis: Same Procedure(s): 1. Creation of Left Brachial Artery to Axillary Vein AV Graft with 6 mm Bovine Graft Artergraft 2. Open Thrombectomy of Left Axillary Vein with 6 Awais Surgeon: Parker Aquino MD Spiritual Care Coordinator: None Anesthesia: Regional/MAC EBL: Minimal Counts: Correct Complications: None Condition: Stable Findings: The left axillary vein was occluded with thrombus however there was brisk backflow of venous blood after successful thrombectomy with a 6 Awais. Successful Creation of Left Arm AV Graft with Palpable Thrill and Palpable Radial Pulse at the Completion of the Case. Specimen: None Indication: The patient is a 66-year-old female with a history of end-stage renal disease who has had creation of arteriovenous graft in bilateral upper extremities. Her most recent graft was in the left arm however it thrombosed and was unable to be salvaged. She is currently on hemodialysis through a right internal jugular permacath. She is in need of permanent access and requires creation of an arteriovenous graft in her left upper extremity. She was given the risk, benefits, and alternative procedures and consented to the procedure. Description of Procedure: Prior to being transported to the operating room the patient had a regional block of the left arm performed. After the block was performed the patient was transported to the operating room and adequately sedated. The patient's left arm was then prepped and draped in normal sterile fashion. A longitudinal incision was made on the medial aspect of the arm just proximal to the antecubital crease and distal to a previous incision for her initial AV graft. Sharp dissection was used to carry the dissection down to the brachial artery. The brachial artery was dissected out circumferentially both proximally and distally and controlled with vessel loops. A second incision was created in longitudinal fashion on the medial aspect of the arm proximal to the previous incision. Sharp dissection was used to create the incision down to the axillary vein and the vein was dissected circumferentially, proximal to the previously placed stent within the axillary vein. The axillary vein was controlled with a vessel loop. I then used a Marga-Wick tunneler to tunnel from the brachial artery incision to the axillary vein incision and then pulled an 6 mm bovine through the tunnel. I infused with heparinized saline to ensure that it was not twisted or kinked. I put the brachial artery vessel loops on tension controlling the flow and then created an arteriotomy using an 11 blade and Valle scissors. I beveled the graft and created an end-to-side anastomosis using 6-0 Prolene running fashion. I clamped the graft just proximal to the anastomosis and then released the vessel loops restoring flow in the brachial artery. I placed quick clot in incision to achieve hemostasis. I cut the proximal end of the graft to the appropriate length and beveled the graft in preparation for a venous anastomosis. I controlled the axillary vein a Satinsky clamp and created a venotomy using an 11 blade and Valle scissors. Upon opening the axillary vein it was noted to have thrombus within the venotomy. I remove the thrombus from within the venotomy however there was still no backbleeding so I advanced a 6 forward into the proximal vein and withdrew a significant amount of thrombus. I made several passes into there was no additional thrombus and there was brisk backbleeding. I flushed the vein with heparinized saline and then reclamped the vein with a Satinsky clamp. I created an end to side anastomosis using a 6-0 Prolene in running fashion. Prior to completing the anastomosis I flushed the graft to ensure there was no thrombus and then completed the anastamosis. I released all clamps allowing flow into the AV graft which had an excellent thrill. I packed the wound with quick clot to achieve hemostasis. I closed both wounds in 2 layers using 3-0 Vicryl in running fashion in the deep dermal layer and 4-0 Monocryl in running fashion the subcuticular layer. I dressed both wounds with Dermabond. The patient tolerated the procedure well all sponge, needle, and instrument counts were correct. The patient was taken to recovery in stable condition.
[2021-04-18] MEDS ORDERED: ESMOLOL 100 MG/10 ML INJ IV ONE (14:17)
[2021-04-18] MEDS ORDERED: MIDAZOLAM 2 MG/2 ML INJ IV NR (14:20)
[2021-04-18] MEDS ORDERED: MIDAZOLAM 2 MG/2 ML INJ IV ONE (14:25)
[2021-04-18] MEDS ORDERED: ESMOLOL 100 MG/10 ML INJ IV NR (14:30)
[2021-04-18] MEDS ORDERED: METOPROLOL TARTRATE 5 MG/5 ML INJ IV ONE ×2 (14:39→14:50)
[2021-04-18 15:04] VITALS: BP 132/82
== END 2021-04-18 08:46 | disposition home or self-care (01) ==
LOC: OR 08:45
PROVIDERS: ATTEND Surgery Vascular Surgery
DX: I12.0 Hypertensive chronic kidney disease with stage 5 chronic kidney disease or end stage renal disease (principal); N18.6 End stage renal disease; E66.9 Obesity, unspecified; E78.00 Pure hypercholesterolemia, unspecified; K21.9 Gastro-esophageal reflux disease without esophagitis; Z99.2 Dependence on renal dialysis; Z90.710 Acquired absence of both cervix and uterus; Z98.890 Other specified postprocedural states; Z79.899 Other long term (current) drug therapy; Z87.891 Personal history of nicotine dependence
CPT/HCPCS: 36415; 36830; 64415; 80048; 85027; C1757; C1768; J0690; J1170; J1644; J2250; J2405; J2704; J3010; J3490; J7030; J7040; J7050; J9280; 64450; J7120; Q0162